=== PATIENT | male | born 1955 | race Asian ===

== ENCOUNTER → 2017-03-31 | Outpatient (CLI) | payer MEDICARE | END | disposition home or self-care (01) | LOC: MRI 09:04 | PROVIDERS: ATTEND Neurological Surgery | DX: M48.06 Spinal stenosis, lumbar region (principal); M12.88 Other specific arthropathies, not elsewhere classified, other specified site; R26.2 Difficulty in walking, not elsewhere classified | CPT/HCPCS: 72148 ==

== ENCOUNTER → 2017-04-29 | Outpatient (CLI) | payer MEDICARE | END | disposition home or self-care (01) | LOC: CT 09:15 | PROVIDERS: ATTEND Neurological Surgery | DX: M47.817 Spondylosis without myelopathy or radiculopathy, lumbosacral region (principal) | CPT/HCPCS: 72131 ==

== ENCOUNTER → 2017-06-03 | Outpatient (CLI) | payer MEDICARE | END | disposition home or self-care (01) | LOC: RAD 12:42 | PROVIDERS: ATTEND Neurological Surgery | DX: M47.816 Spondylosis without myelopathy or radiculopathy, lumbar region (principal) | CPT/HCPCS: 72114 ==

== ENCOUNTER → 2017-11-19 | Outpatient (CLI) | payer BC, MEDICARE ==
[2017-11-19 11:50] LABS: BASOPHILS % 0.5 % (0.0-2.0); EOSINOPHILS % 2.7 % (0.0-5.0); HEMATOCRIT. 43.9 % (42.0-52.0); HEMOGLOBIN. 14.8 g/dL (14.0-18.0); LYMPHOCYTES % 29.3 % (20.0-50.0); MEAN CORPUSCULAR HEMOGLOBIN 30.4 pg (28.0-32.0); MEAN CORPUSCULAR VOLUME 90.1 fL (80.0-94.0); MEAN PLATELET VOLUME 8.6 fl (7.4-10.4); MONOCYTES % 5.9 % (2.0-8.0); NEUTROPHILS % 61.6 % (40.0-76.0); PLATELET 225 x1000/uL (130-400); RED BLOOD CELL COUNT 4.88 mill/uL (4.7-6.1); RED CELL DISTRIBUTION WIDTH 13.7 % (11.6-14.6)
[2017-11-19 11:53] LABS: CLARITY URINE CLEAR (CLEAR); COLOR URINE YELLOW (YELLOW); KETONES URINE NEGATIVE (NEGATIVE); LEUKOCYTE ESTERASE URINE NEGATIVE (NEGATIVE); NITRITE URINE NEGATIVE (NEGATIVE); OCCULT BLOOD URINE NEGATIVE (NEGATIVE); PH URINE 7.5 (4.5-8.0); PROTEIN URINE NEGATIVE (NEGATIVE); SPECIFIC GRAVITY URINE 1.012 (1.005-1.030); UROBILINOGEN URINE 0.2 E.U./dL (0.2-1.0)
[2017-11-19 11:57] LABS: PARTIAL THROMBOPLASTIN TIME 24.7 sec (23.4-31.0); PROTHROMBIN TIME 10.7 sec (9.4-11.6)
[2017-11-19 12:02] LABS: CHLORIDE 104 mEq/L (98-107)
== END | disposition home or self-care (01) ==
LOC: RAD 11:18
PROVIDERS: ATTEND Neurological Surgery
DX: M46.04 Spinal enthesopathy, thoracic region (principal)
CPT/HCPCS: 36415; 71046; 80053; 81003; 85025; 85610; 85730; 86850; 86900; 93005

== ENCOUNTER 2017-11-24 06:21 | Inpatient (IN) | payer BC, MEDICARE ==
[~2017-11-24] VITALS: Ht 153.9 cm; Wt 74.8 kg
[2017-11-24] VITALS: BP 127/82
[~2017-11-24 06:21] MED LIST: AMLO2.5T45 PO; CARI350T PO; HYDR-3511 PO; LORA-250 PO; MIRT45TA PO; OMEP20CA10 PO; SIMV40TA5 PO
[2017-11-24] MEDS ORDERED: LIDOCAINE HCL/EPINEPHRINE 1%-EPI 1:100,000 50 ML VIAL INFIL ONE (09:07)
[2017-11-24] MEDS ORDERED: GELATIN SPONGE,ABSORBABLE SZ 100 ONE (09:07)
[2017-11-24] MEDS ORDERED: BACITRACIN ZINC 15GM TUBE TOP ONE (09:07)
[2017-11-24] MEDS ORDERED: THROMBIN (BOVINE) 5000 UNITS/VIAL TOP ONE (09:07)
[2017-11-24] MEDS ORDERED: NORMAL SALINE 0.9% 10 ML SYR ONE (09:08)
[2017-11-24] MEDS ORDERED: BACITRACIN 50,000 UNITS/VIAL ONE (09:08)
[2017-11-24] MEDS ORDERED: ROCURONIUM BROMIDE 10MG/ML VIAL 5ML IV ONE (09:49)
[2017-11-24] MEDS ORDERED: PROPOFOL 200MG/20ML VIAL IV ONE (09:49)
[2017-11-24] MEDS ORDERED: CEFAZOLIN SODIUM 1000MG/VIAL ONE (09:55)
[2017-11-24] MEDS ORDERED: DEXAMETHASONE 4MG/ML 1ML VIAL ONE (09:55)
[2017-11-24] MEDS ORDERED: LABETALOL HCL 5MG/ML VIAL 20ML IV ONE (10:00)
[2017-11-24] MEDS ORDERED: HYDROMORPHONE HCL/PF 2MG/ML (OR) ONE (10:32)
[2017-11-24] MEDS ORDERED: GLYCOPYRROLATE 0.2 MG/ML 2ML VIAL ONE (10:55)
[2017-11-24] MEDS ORDERED: NEOSTIGMINE METHYLSULFATE 1MG/ML 10 ML VIAL ONE (10:55)
[2017-11-24] MEDS ORDERED: LABETALOL HCL 5MG/ML VIAL 20ML IV PRN (11:00)
[2017-11-24] MEDS ORDERED: ONDANSETRON HCL 4MG/2ML VIAL IV PRN ×2 (11:00→11:15)
[2017-11-24] MEDS ORDERED: CLONIDINE 0.1MG TABLET PO PRN (11:15)
[2017-11-24] MEDS ORDERED: IPRATROPIUM/ALBUTEROL 0.5-3(2.5)MG/3ML NEB INH PRN (11:15)
[2017-11-24] MEDS ORDERED: DIPHENHYDRAMINE 50MG/ML VIAL IV PRN (11:15)
[2017-11-24] MEDS: MEPERIDINE HCL/PF 25MG/ML CPJ IV PRN ×2 (11:55→12:18)
[2017-11-24] MEDS ORDERED: DEXAMETHASONE 10 MG/ML VIAL IV ONE (12:00)
[2017-11-24] MEDS ORDERED: IPRATROPIUM/ALBUTEROL 0.5-3(2.5)MG/3ML NEB HHN ONE (12:00)
[2017-11-24] MEDS: DEXT 5%/LACTATED RINGERS 1,000 ML IV SCH ×2 (12:14→16:59)
[2017-11-24] MEDS: HYDROMORPHONE HCL/PF 2MG/ML CPJ IV PRN ×4 (12:30→13:33)
[2017-11-24 16:00] VITALS: BP 135/87
[2017-11-24] MEDS: MORPHINE SULFATE 4 MG/ML CPJ (NOT FOR IM USE) IV PRN (17:38)
[2017-11-24 17:39] VITALS: BP 135/87
[2017-11-24] MEDS ORDERED: CEFAZOLIN SODIUM 1000MG/VIAL IV SCH (18:00)
[2017-11-24] MEDS: CEFAZOLIN 1000MG PREMIX 50 ML IV SCH (18:59)
[2017-11-24 20:00] VITALS: BP 127/82
[2017-11-24] MEDS: CARISOPRODOL 350 MG TABLET PO SCH (22:40)
[2017-11-24] MEDS: LORAZEPAM 1MG TABLET PO PRN (22:40)
[2017-11-24] MEDS: HYDROCODONE/ACETAMINOPHEN 10/325MG TABLET PO PRN (22:41)
[2017-11-25] MEDS: MORPHINE SULFATE 4 MG/ML CPJ (NOT FOR IM USE) IV PRN ×5 (01:25→22:22)
[2017-11-25] MEDS: CEFAZOLIN 1000MG PREMIX 50 ML IV SCH ×2 (01:27→10:55)
[2017-11-25 04:00] VITALS: BP 135/80
[2017-11-25] MEDS: OMEPRAZOLE 20MG CAPSULE EXTENDED RELEASE PO SCH ×2 (06:06→22:15)
[2017-11-25] MEDS: CARISOPRODOL 350 MG TABLET PO SCH ×3 (06:06→22:15)
[2017-11-25] MEDS: LORAZEPAM 1MG TABLET PO PRN (06:07)
[2017-11-25 06:44] LABS: BASOPHILS % 0.2 % (0.0-2.0); HEMATOCRIT. 40.1 % (42.0-52.0); HEMOGLOBIN. 13.6 g/dL (14.0-18.0); LYMPHOCYTES % 7.9 % (20.0-50.0); MEAN CORPUSCULAR HEMOGLOBIN 30.2 pg (28.0-32.0); MEAN CORPUSCULAR VOLUME 89.1 fL (80.0-94.0); MEAN PLATELET VOLUME 9.7 fl (7.4-10.4); MONOCYTES % 4.3 % (2.0-8.0); NEUTROPHILS % 87.6 % (40.0-76.0); PLATELET 198 x1000/uL (130-400); RED BLOOD CELL COUNT 4.51 mill/uL (4.7-6.1); RED CELL DISTRIBUTION WIDTH 13.1 % (11.6-14.6)
[2017-11-25 08:00] VITALS: BP 116/82
[2017-11-25] MEDS: AMLODIPINE 5MG TABLET PO SCH (08:26)
[2017-11-25 08:32] LABS: CHLORIDE 103 mEq/L (98-107)
[2017-11-25 12:00] VITALS: BP 120/83
[2017-11-25 20:00] VITALS: BP 121/77
[2017-11-25] MEDS: HYDROCODONE/ACETAMINOPHEN 10/325MG TABLET PO PRN (20:18)
[2017-11-25] MEDS: ZOLPIDEM TARTRATE 5MG TABLET PO PRN (22:15)
[2017-11-26] VITALS: BP 138/88
[2017-11-26] MEDS: HYDROCODONE/ACETAMINOPHEN 10/325MG TABLET PO PRN ×2 (01:49→10:00)
[2017-11-26 04:00] VITALS: BP 124/77
[2017-11-26] MEDS ORDERED: SODIUM CHLORIDE 0.9% 1,000 ML IV ONE (07:00)
[2017-11-26] MEDS: OMEPRAZOLE 20MG CAPSULE EXTENDED RELEASE PO SCH ×2 (07:30→20:34)
[2017-11-26] MEDS: CARISOPRODOL 350 MG TABLET PO SCH ×3 (07:30→21:54)
[2017-11-26 08:00] VITALS: BP 104/64
[2017-11-26] MEDS: DOCUSATE SODIUM 100MG CAPSULE PO SCH ×2 (08:58→17:55)
[2017-11-26] MEDS: AMLODIPINE 5MG TABLET PO SCH (08:58)
[2017-11-26] MEDS: MORPHINE SULFATE 4 MG/ML CPJ (NOT FOR IM USE) IV PRN ×2 (08:58→18:41)
[2017-11-26 11:13] LABS: HEMOGLOBIN 14.8 g/dL (14.0-18.0); MEAN CORPUSCULAR HEMOGLOBIN 29.9 pg (28.0-32.0); MEAN CORPUSCULAR VOLUME 89.2 fL (80.0-94.0); PLATELET 203 x1000/uL (130-400); RED BLOOD CELL COUNT 4.93 mill/uL (4.7-6.1); RED CELL DISTRIBUTION WIDTH 13.6 % (11.6-14.6)
[2017-11-26 11:56] LABS: CHLORIDE 102 mEq/L (98-107)
[2017-11-26 12:00] VITALS: BP 106/63
[2017-11-26 12:51] LABS: CREATINE KINASE 602 IU/L (39-308); CREATINE KINASE MB FRACTION 2.2 ng/mL (0.5-3.6); TROPONIN I < 0.02 ng/mL (0.00-0.04)
[2017-11-26] MEDS: LORAZEPAM 1MG TABLET PO PRN (15:16)
[2017-11-26] MEDS ORDERED: ACETAMINOPHEN 325MG TABLET PO PRN (15:30)
[2017-11-26 16:00] VITALS: BP 115/78
[2017-11-26 16:05] LABS: CLARITY URINE CLEAR (CLEAR); COLOR URINE YELLOW (YELLOW); KETONES URINE TRACE (NEGATIVE); LEUKOCYTE ESTERASE URINE NEGATIVE (NEGATIVE); NITRITE URINE NEGATIVE (NEGATIVE); OCCULT BLOOD URINE NEGATIVE (NEGATIVE); PROTEIN URINE NEGATIVE (NEGATIVE); SPECIFIC GRAVITY URINE 1.012 (1.005-1.030); UROBILINOGEN URINE 0.2 E.U./dL (0.2-1.0)
[2017-11-26 20:00] VITALS: BP 120/71
[2017-11-26] MEDS: MIRTAZAPINE 30MG TABLET PO SCH (20:38)
[2017-11-27] VITALS: BP 127/80
[2017-11-27] MEDS: HYDROCODONE/ACETAMINOPHEN 10/325MG TABLET PO PRN ×3 (00:58→12:53)
[2017-11-27] MEDS: ZOLPIDEM TARTRATE 5MG TABLET PO PRN ×2 (01:07→21:40)
[2017-11-27] MEDS: CARISOPRODOL 350 MG TABLET PO SCH ×3 (06:12→21:33)
[2017-11-27] MEDS: OMEPRAZOLE 20MG CAPSULE EXTENDED RELEASE PO SCH (06:13)
[2017-11-27 08:00] VITALS: BP 109/78
[2017-11-27 08:06] LABS: BASOPHILS % 0.4 % (0.0-2.0); EOSINOPHILS % 1.8 % (0.0-5.0); HEMATOCRIT. 43.2 % (42.0-52.0); HEMOGLOBIN. 14.5 g/dL (14.0-18.0); LYMPHOCYTES % 26.1 % (20.0-50.0); MEAN CORPUSCULAR HEMOGLOBIN 30.2 pg (28.0-32.0); MEAN CORPUSCULAR VOLUME 89.8 fL (80.0-94.0); MEAN PLATELET VOLUME 9.4 fl (7.4-10.4); NEUTROPHILS % 63.7 % (40.0-76.0); PLATELET 188 x1000/uL (130-400); RED BLOOD CELL COUNT 4.81 mill/uL (4.7-6.1); RED CELL DISTRIBUTION WIDTH 13.7 % (11.6-14.6)
[2017-11-27] MEDS: DOCUSATE SODIUM 100MG CAPSULE PO SCH ×2 (08:47→16:29)
[2017-11-27] MEDS: LORAZEPAM 1MG TABLET PO PRN (08:48)
[2017-11-27 08:53] LABS: CHLORIDE 102 mEq/L (98-107)
[2017-11-27] MEDS: AMLODIPINE 5MG TABLET PO SCH (08:53)
[2017-11-27 12:00] VITALS: BP 101/65
[2017-11-27 16:00] VITALS: BP 122/85
[2017-11-27] MEDS: MORPHINE SULFATE 4 MG/ML CPJ (NOT FOR IM USE) IV PRN ×2 (16:35→21:33)
[2017-11-27 20:00] VITALS: BP 110/64
[2017-11-27] MEDS: MIRTAZAPINE 30MG TABLET PO SCH (21:33)
[2017-11-28] VITALS: BP 99/58
[2017-11-28 04:00] VITALS: BP 110/77
[2017-11-28] MEDS: LORAZEPAM 1MG TABLET PO PRN ×2 (05:34→15:33)
[2017-11-28] MEDS: HYDROCODONE/ACETAMINOPHEN 10/325MG TABLET PO PRN (05:36)
[2017-11-28] MEDS: CARISOPRODOL 350 MG TABLET PO SCH ×3 (06:09→21:30)
[2017-11-28 07:57] LABS: BASOPHILS % 0.4 % (0.0-2.0); EOSINOPHILS % 6.2 % (0.0-5.0); HEMATOCRIT. 39.7 % (42.0-52.0); HEMOGLOBIN. 13.8 g/dL (14.0-18.0); LYMPHOCYTES % 20.3 % (20.0-50.0); MEAN CORPUSCULAR HEMOGLOBIN 30.7 pg (28.0-32.0); MEAN CORPUSCULAR VOLUME 88.2 fL (80.0-94.0); MEAN PLATELET VOLUME 9.5 fl (7.4-10.4); MONOCYTES % 5.8 % (2.0-8.0); NEUTROPHILS % 67.3 % (40.0-76.0); PLATELET 188 x1000/uL (130-400); RED CELL DISTRIBUTION WIDTH 13.5 % (11.6-14.6)
[2017-11-28 08:00] VITALS: BP 112/73
[2017-11-28 08:15] LABS: CHLORIDE 103 mEq/L (98-107)
[2017-11-28] MEDS: DOCUSATE SODIUM 100MG CAPSULE PO SCH ×3 (09:06→17:54)
[2017-11-28] MEDS: AMLODIPINE 5MG TABLET PO SCH (09:06)
[2017-11-28] MEDS: PANTOPRAZOLE SODIUM 40 MG/VIAL IV SCH (09:07)
[2017-11-28 12:00] VITALS: BP 111/66
[2017-11-28] MEDS ORDERED: POTASSIUM CHLORIDE 20MEQ TABLET SR PO SCH (14:30)
[2017-11-28 16:00] VITALS: BP 120/80
[2017-11-28 20:00] VITALS: BP 115/70
[2017-11-28] MEDS: MORPHINE SULFATE 4 MG/ML CPJ (NOT FOR IM USE) IV PRN (21:30)
[2017-11-28] MEDS: MIRTAZAPINE 30MG TABLET PO SCH (21:30)
[2017-11-28] MEDS: ZOLPIDEM TARTRATE 5MG TABLET PO PRN (21:30)
[2017-11-29] VITALS: BP 133/72
[2017-11-29 04:00] VITALS: BP 118/71
[2017-11-29] MEDS: MORPHINE SULFATE 4 MG/ML CPJ (NOT FOR IM USE) IV PRN ×2 (04:51→10:20)
[2017-11-29] MEDS: CARISOPRODOL 350 MG TABLET PO SCH ×3 (06:02→21:32)
[2017-11-29 07:07] LABS: BASOPHILS % 0.4 % (0.0-2.0); EOSINOPHILS % 9.8 % (0.0-5.0); HEMATOCRIT. 39.4 % (42.0-52.0); HEMOGLOBIN. 13.5 g/dL (14.0-18.0); LYMPHOCYTES % 28.7 % (20.0-50.0); MEAN CORPUSCULAR HEMOGLOBIN 30.4 pg (28.0-32.0); MEAN CORPUSCULAR VOLUME 88.9 fL (80.0-94.0); MEAN PLATELET VOLUME 9.1 fl (7.4-10.4); MONOCYTES % 7.6 % (2.0-8.0); NEUTROPHILS % 53.5 % (40.0-76.0); PLATELET 218 x1000/uL (130-400); RED BLOOD CELL COUNT 4.43 mill/uL (4.7-6.1); RED CELL DISTRIBUTION WIDTH 13.6 % (11.6-14.6)
[2017-11-29 07:36] LABS: CHLORIDE 104 mEq/L (98-107)
[2017-11-29 08:00] VITALS: BP 112/87
[2017-11-29] MEDS: AMLODIPINE 5MG TABLET PO SCH (08:34)
[2017-11-29] MEDS: PANTOPRAZOLE SODIUM 40 MG/VIAL IV SCH (08:34)
[2017-11-29] MEDS: DOCUSATE SODIUM 100MG CAPSULE PO SCH (08:34)
[2017-11-29] MEDS: LORAZEPAM 1MG TABLET PO PRN (08:41)
[2017-11-29] MEDS ORDERED: DOCUSATE SODIUM 250MG CAPSULE PO ONE (10:15)
[2017-11-29] MEDS ORDERED: DOCUSATE SODIUM 100MG CAPSULE PO SCH (10:15)
[2017-11-29 12:00] VITALS: BP 115/70
[2017-11-29] MEDS ORDERED: HYDROMORPHONE HCL/PF 2MG/ML CPJ IV SCH (13:45)
[2017-11-29] MEDS ORDERED: HYDROMORPHONE HCL/PF 2MG/ML CPJ IV PRN (16:45)
[2017-11-29 20:00] VITALS: BP 112/72
[2017-11-29] MEDS ORDERED: HYDROCODONE/ACETAMINOPHEN 5/325MG TABLET PO PRN (20:45)
[2017-11-29] MEDS: ZOLPIDEM TARTRATE 5MG TABLET PO PRN (21:31)
[2017-11-29] MEDS: MIRTAZAPINE 30MG TABLET PO SCH (21:32)
[2017-11-30] VITALS: BP 120/70
[2017-11-30 04:00] VITALS: BP 110/73
[2017-11-30] MEDS: CARISOPRODOL 350 MG TABLET PO SCH ×3 (05:59→21:48)
[2017-11-30 08:00] VITALS: BP 114/75
[2017-11-30] MEDS ORDERED: MORPHINE SULFATE 4 MG/ML CPJ (NOT FOR IM USE) IV PRN (08:00)
[2017-11-30] MEDS ORDERED: POLYETHYLENE GLYCOL 3350 (17GM) 1 DOSE PACK PO SCH (08:00)
[2017-11-30 08:10] LABS: BASOPHILS % 0.4 % (0.0-2.0); EOSINOPHILS % 9.4 % (0.0-5.0); HEMATOCRIT. 39.9 % (42.0-52.0); HEMOGLOBIN. 13.5 g/dL (14.0-18.0); LYMPHOCYTES % 34.9 % (20.0-50.0); MEAN CORPUSCULAR HEMOGLOBIN 30.2 pg (28.0-32.0); MEAN PLATELET VOLUME 9.2 fl (7.4-10.4); MONOCYTES % 7.3 % (2.0-8.0); PLATELET 232 x1000/uL (130-400); RED BLOOD CELL COUNT 4.48 mill/uL (4.7-6.1); RED CELL DISTRIBUTION WIDTH 13.6 % (11.6-14.6)
[2017-11-30] MEDS: DOCUSATE SODIUM 250MG CAPSULE PO SCH (08:22)
[2017-11-30] MEDS: AMLODIPINE 5MG TABLET PO SCH (08:23)
[2017-11-30] MEDS: LORAZEPAM 0.5MG TABLET PO PRN (08:23)
[2017-11-30 08:28] LABS: CHLORIDE 103 mEq/L (98-107)
[2017-11-30 12:00] VITALS: BP 112/64
[2017-11-30 16:00] VITALS: BP 118/73
[2017-11-30 20:00] VITALS: BP 115/75
[2017-11-30] MEDS: ZOLPIDEM TARTRATE 5MG TABLET PO PRN (21:45)
[2017-11-30] MEDS: MIRTAZAPINE 30MG TABLET PO SCH (21:48)
[2017-12-01] VITALS: BP 127/73
[2017-12-01 04:00] VITALS: BP 100/69
[2017-12-01] MEDS: CARISOPRODOL 350 MG TABLET PO SCH (06:22)
[2017-12-01] MEDS: AMLODIPINE 5MG TABLET PO SCH (09:00)
[2017-12-01] MEDS: LORAZEPAM 0.5MG TABLET PO PRN (09:09)
[2017-12-01] MEDS: DOCUSATE SODIUM 250MG CAPSULE PO SCH (09:09)
[2017-12-01 09:37] VITALS: BP 104/69
[2017-12-01 09:53] VITALS: BP 104/69
== END 2017-12-01 10:13 | disposition home or self-care (01) | DRG 517 ==
LOC: OR 06:21 → 6EST 06:22
PROVIDERS: ADMIT Internal Medicine; ATTEND Internal Medicine
PROC: 0SP004Z Removal of Internal Fixation Device from Lumbar Vertebral Joint, Open Approach (ICD-10-PCS; principal; 2017-11-24 11:00)
DX: T84.226A Displacement of internal fixation device of vertebrae, initial encounter (principal); M48.02 Spinal stenosis, cervical region; D72.829 Elevated white blood cell count, unspecified; E87.6 Hypokalemia; I10 Essential (primary) hypertension; I45.10 Unspecified right bundle-branch block; Y83.8 Other surgical procedures as the cause of abnormal reaction of the patient, or of later complication, without mention of misadventure at the time of the procedure; M48.061 Spinal stenosis, lumbar region without neurogenic claudication; Z82.49 Family history of ischemic heart disease and other diseases of the circulatory system; Y92.89 Other specified places as the place of occurrence of the external cause
CPT/HCPCS: 36415; 72100; 80048; 81003; 82550; 82553; 83735; 84484; 85025; 85027; 85379; 87040; 88300; 93005; 93306; 94640; 97110; 97116; 97162; 97530; 97535; A4216; C1893; C9113; J0690; J1100; J1170; J2175; J2270; J2704; J2710; J3490; J7030; J7040; J7120; J7121; J7620

== ENCOUNTER → 2018-09-16 | Outpatient (CLI) | payer BC, MEDICARE | END | disposition home or self-care (01) | LOC: MRI 08:55 | PROVIDERS: ATTEND Neurological Surgery | DX: M50.322 Other cervical disc degeneration at C5-C6 level (principal); M48.02 Spinal stenosis, cervical region; M51.36 Other intervertebral disc degeneration, lumbar region; M47.892 Other spondylosis, cervical region | CPT/HCPCS: 72052; 72114; 72141 ==

== ENCOUNTER → 2019-07-14 | Outpatient (CLI) | payer BC | END | disposition home or self-care (01) | LOC: MRI 09:37 | PROVIDERS: ATTEND Neurological Surgery | DX: M48.02 Spinal stenosis, cervical region (principal); M25.78 Osteophyte, vertebrae | CPT/HCPCS: 72141 ==

== ENCOUNTER 2019-09-06 06:27 | Inpatient (IN) | payer BC, MEDICARE ==
[2019-09-06] VITALS (27 sets, daily range): BP systolic 79–164; BP diastolic 54–102
[~2019-09-06] VITALS: Ht 165.1 cm; Wt 84.8 kg
[~2019-09-06 06:27] MED LIST changes: -AMLO2.5T45 PO; +AMLO5TAB88 PO; +CARI250T PO; -CARI350T PO; -HYDR-3511 PO; +HYDR-4005 PO; -MIRT45TA PO; +MIRT45TA83 PO; -OMEP20CA10 PO; +OMEP40CA34 PO
[2019-09-06] MEDS ORDERED: NORMAL SALINE 0.9% 10 ML SYR ONE ×2 (07:22→11:14)
[2019-09-06] MEDS ORDERED: THROMBIN (BOVINE) 5000 UNITS/VIAL TOP ONE ×2 (07:22→11:14)
[2019-09-06] MEDS ORDERED: BACITRACIN 15GM TUBE TOP ONE (07:22)
[2019-09-06] MEDS ORDERED: BACITRACIN 50,000 UNITS/VIAL ONE ×2 (07:23→11:15)
[2019-09-06] MEDS ORDERED: SODIUM CHLORIDE 0.9% IRRIG SOL 2,000 ML IR ONE (07:23)
[2019-09-06] MEDS ORDERED: LIDOCAINE HCL/EPINEPHRINE 1%-EPI 1:100,000 20 ML VIAL ONE ×2 (07:23→11:15)
[2019-09-06] MEDS ORDERED: LACTATED RINGERS 1,000 ML IV SCH (07:30)
[2019-09-06] MEDS ORDERED: ROCURONIUM BROMIDE 10MG/ML VIAL 5ML IV ONE ×2 (11:30→12:56)
[2019-09-06] MEDS ORDERED: PROPOFOL 200MG/20ML VIAL IV ONE ×2 (11:30→12:12)
[2019-09-06] MEDS ORDERED: MIDAZOLAM HCL 2 MG/2 ML VIAL ONE ×3 (11:30→14:42)
[2019-09-06] MEDS ORDERED: FENTANYL CITRATE/PF 50MCG/ML 2ML VIAL ONE ×2 (11:30→12:09)
[2019-09-06] MEDS ORDERED: LIDOCAINE HCL/PF 1% 10 MG/ML 5ML VIAL ONE (11:30)
[2019-09-06] MEDS ORDERED: CEFAZOLIN SODIUM 1000MG/VIAL ONE (11:34)
[2019-09-06] MEDS ORDERED: SODIUM CHLORIDE 0.9% 10ML VIAL ONE ×3 (11:35→12:10)
[2019-09-06] MEDS ORDERED: PHENYLEPHRINE HCL 10 MG/ML 1ML (IV VIAL) IV ONE ×2 (11:37→14:36)
[2019-09-06] MEDS ORDERED: EPHEDRINE SULFATE 50MG/ML VIAL ONE ×2 (11:40→12:10)
[2019-09-06] MEDS ORDERED: GLYCOPYRROLATE 0.2 MG/ML 2ML VIAL ONE ×3 (13:31→14:36)
[2019-09-06] MEDS ORDERED: CEFAZOLIN SODIUM 1000MG/VIAL IV SCH (14:00)
[2019-09-06] MEDS ORDERED: NEOSTIGMINE METHYLSULFATE 1MG/ML 10 ML VIAL ONE (14:36)
[2019-09-06] MEDS ORDERED: ALBUTEROL 90MCG/PUFF 17GM INHALER INH ONE (14:42)
[2019-09-06] MEDS ORDERED: HYDROMORPHONE HCL/PF 2MG/ML CPJ ONE (14:42)
[2019-09-06] MEDS: HYDROMORPHONE HCL/PF 2MG/ML CPJ IV PRN ×3 (14:43→14:52)
[2019-09-06] MEDS ORDERED: ALBUTEROL (0.083%) 2.5MG/3ML NEB ONE ×2 (14:43→14:44)
[2019-09-06] MEDS ORDERED: LORAZEPAM 2MG/ML CPJ ONE (14:55)
[2019-09-06] MEDS ORDERED: RACEPINEPHRINE 2.25% 0.5ML NEB VIAL HHN PRN (15:00)
[2019-09-06] MEDS ORDERED: ONDANSETRON HCL 4MG/2ML INJ IV PRN (15:00)
[2019-09-06] MEDS ORDERED: MEPERIDINE HCL/PF 25MG/ML CPJ IV PRN (15:00)
[2019-09-06] MEDS ORDERED: ONDANSETRON INJ IV PRN (15:15)
[2019-09-06] MEDS ORDERED: MORPHINE PCA 50MG/50ML IV PRN (15:15)
[2019-09-06] MEDS ORDERED: DIPHENHYDRAMINE INJ IV PRN (15:15)
[2019-09-06] MEDS ORDERED: LORAZEPAM 2MG/ML CPJ IV NR (15:15)
[2019-09-06] MEDS ORDERED: NALOXONE INJ IV PRN (15:15)
[2019-09-06] MEDS ORDERED: LABETALOL 5MG/ML SYR 20 MG/4 ML SYRINGE IV NR (15:30)
[2019-09-06] MEDS ORDERED: IPRATROPIUM/ALBUTEROL 0.5-3(2.5)MG/3ML NEB HHN PRN (15:30)
[2019-09-06 16:25] LABS: BG BASE EXCESS -1.9 mmol/L (-2.0-2.0); BG CARBOXYHEMOGLOBIN 0.4 % (0.5-1.5); BG DEOXYHEMOGLOBIN 1.6 % (0.0-5.0); BG FRACTION INSPIRED OXYGEN 32; BG HCO3 ACT 22.5 mmol/L (22.0-26.0); BG METHEMOGLOBIN 0.3 % (0.0-1.5); BG OXYGEN SATURATION 98.4 % (92.0-98.5); BG OXYHEMOGLOBIN 97.7 % (94.0-97.0); BG PCO2 37.4 mmHg (35.0-45.0); BG PH 7.397 (7.350-7.450); BG PO2 130.7 mmHg (75.0-100.0); BG SAMPLE SITE A-LINE; BG TOTAL HEMOGLOBIN 15.1 g/dL (12.0-18.0); BG VENT MODE NASAL CANNULA
[2019-09-06] MEDS: DEXAMETHASONE 4MG/ML 1ML VIAL IV SCH ×2 (16:31→23:24)
[2019-09-06] MEDS ORDERED: HYDRALAZINE 20MG/ML VIAL IV STA (17:30)
[2019-09-06] MEDS ORDERED: NICARDIPINE 100 MG in SODIUM CHLORIDE 0.9% 60 ML IV PRN (17:30)
[2019-09-06] MEDS ORDERED: NITROPRUSSIDE 50 MG in DEXT 5% WATER 248 ML IV PRN (17:45)
[2019-09-06] MEDS ORDERED: HYDRALAZINE 20MG/ML VIAL IV NR (18:00)
[2019-09-06] MEDS: MORPHINE SULFATE 4 MG/ML CPJ (NOT FOR IM USE) IV PRN (18:12)
[2019-09-06 18:31] LABS: HEMATOCRIT. 42.1 % (42.0-52.0); HEMOGLOBIN. 14.2 g/dL (14.0-18.0); MEAN CORPUSCULAR HEMOGLOBIN 30.9 pg (28.0-32.0); MEAN CORPUSCULAR VOLUME 91.4 fL (80.0-94.0); MEAN PLATELET VOLUME 9.1 fl (7.4-10.4); PLATELET 219 x1000/uL (130-400); RED CELL DISTRIBUTION WIDTH 13.2 % (11.6-14.6)
[2019-09-06 18:37] LABS: CHLORIDE 107 mEq/L (98-107)
[2019-09-06 19:56] LABS: PLATELET ESTIMATE NORMAL
[2019-09-06] MEDS: CEFAZOLIN 1000MG PREMIX 50 ML IV SCH (20:56)
[2019-09-06] MEDS: LORAZEPAM 1MG TABLET PO PRN (20:57)
[2019-09-06] MEDS: DEXT 5%/LACTATED RINGERS 1,000 ML IV SCH (20:57)
[2019-09-06] MEDS: IPRATROPIUM/ALBUTEROL 0.5-3(2.5)MG/3ML NEB HHN SCH (21:38)
[2019-09-06] MEDS: HYDROCODONE/APAP 7.5/325MG 1 TAB TABLET PO PRN (22:42)
[2019-09-07] VITALS (53 sets, daily range): BP systolic 77–163; BP diastolic 46–115
[2019-09-07] MEDS: MORPHINE SULFATE 4 MG/ML CPJ (NOT FOR IM USE) IV PRN ×2 (01:09→05:31)
[2019-09-07] MEDS: IPRATROPIUM/ALBUTEROL 0.5-3(2.5)MG/3ML NEB HHN SCH ×5 (03:53→21:52)
[2019-09-07] MEDS: DEXT 5%/LACTATED RINGERS 1,000 ML IV SCH ×3 (04:14→18:56)
[2019-09-07] MEDS: CEFAZOLIN 1000MG PREMIX 50 ML IV SCH ×3 (04:15→21:41)
[2019-09-07] MEDS: DEXAMETHASONE 4MG/ML 1ML VIAL IV SCH ×2 (05:29→12:54)
[2019-09-07] MEDS: HYDROMORPHONE HCL/PF 2MG/ML CPJ IV PRN ×4 (09:29→23:12)
[2019-09-07] MEDS: LORAZEPAM 1MG TABLET PO PRN ×2 (10:06→18:55)
[2019-09-07] MEDS ORDERED: PNEUMOCOCCAL 23-VAL P-SAC VAC 0.5 ML IM ONE (12:00)
[2019-09-07] MEDS ORDERED: BISACODYL 5MG TABLET PO PRN (13:15)
[2019-09-07] MEDS ORDERED: POTASSIUM CHLORIDE 20MEQ/PACKET PO SCH (13:15)
[2019-09-07] MEDS ORDERED: CLONIDINE 0.1MG TABLET PO PRN (15:00)
[2019-09-07] MEDS: HYDROCODONE/APAP 7.5/325MG 1 TAB TABLET PO PRN (16:36)
[2019-09-07] MEDS: DOCUSATE SODIUM 100MG CAPSULE PO SCH (17:17)
[2019-09-07] MEDS: MIRTAZAPINE 15MG TABLET PO SCH (21:41)
[2019-09-07] MEDS: ATORVASTATIN CALCIUM 40MG TABLET PO SCH (21:41)
[2019-09-08] MEDS: IPRATROPIUM/ALBUTEROL 0.5-3(2.5)MG/3ML NEB HHN SCH ×4 (02:33→21:51)
[2019-09-08] MEDS: HYDROMORPHONE HCL/PF 2MG/ML CPJ IV PRN ×5 (03:32→20:53)
[2019-09-08 04:00] VITALS: BP 122/73
[2019-09-08] MEDS: CEFAZOLIN 1000MG PREMIX 50 ML IV SCH ×3 (05:09→20:46)
[2019-09-08 08:29] VITALS: BP 141/91
[2019-09-08] MEDS: AMLODIPINE 5MG TABLET PO SCH (09:02)
[2019-09-08] MEDS: OMEPRAZOLE 20MG CAPSULE EXTENDED RELEASE PO SCH (09:02)
[2019-09-08] MEDS: DOCUSATE SODIUM 100MG CAPSULE PO SCH ×2 (09:02→16:52)
[2019-09-08] MEDS: LORAZEPAM 1MG TABLET PO PRN ×2 (09:08→16:53)
[2019-09-08 11:54] VITALS: BP 132/73
[2019-09-08 11:55] LABS: BASOPHILS % 0.1 % (0.0-2.0); EOSINOPHILS % 0.1 % (0.0-5.0); HEMATOCRIT. 39.7 % (42.0-52.0); HEMOGLOBIN. 13.4 g/dL (14.0-18.0); LYMPHOCYTES % 16.3 % (20.0-50.0); MEAN CORPUSCULAR HEMOGLOBIN 31.3 pg (28.0-32.0); MEAN CORPUSCULAR VOLUME 92.8 fL (80.0-94.0); MEAN PLATELET VOLUME 9.2 fl (7.4-10.4); NEUTROPHILS % 76.5 % (40.0-76.0); PLATELET 192 x1000/uL (130-400); RED BLOOD CELL COUNT 4.28 mill/uL (4.7-6.1); RED CELL DISTRIBUTION WIDTH 13.3 % (11.6-14.6)
[2019-09-08 12:10] LABS: CHLORIDE 106 mEq/L (98-107)
[2019-09-08] MEDS ORDERED: POTASSIUM CHLORIDE 20MEQ TABLET SR PO NR (14:15)
[2019-09-08 16:13] VITALS: BP 112/72
[2019-09-08 20:00] VITALS: BP 149/90
[2019-09-08] MEDS: MIRTAZAPINE 15MG TABLET PO SCH (20:46)
[2019-09-08] MEDS: ATORVASTATIN CALCIUM 40MG TABLET PO SCH (20:46)
[2019-09-08 23:31] VITALS: BP 134/84
[2019-09-08] MEDS: HYDROCODONE/APAP 7.5/325MG 1 TAB TABLET PO PRN (23:32)
[2019-09-09] VITALS: BP 142/72
[2019-09-09] MEDS: HYDROMORPHONE HCL/PF 2MG/ML CPJ IV PRN ×5 (01:06→20:32)
[2019-09-09] MEDS: IPRATROPIUM/ALBUTEROL 0.5-3(2.5)MG/3ML NEB HHN SCH ×4 (02:52→21:01)
[2019-09-09 04:00] VITALS: BP 138/85
[2019-09-09] MEDS: OMEPRAZOLE 20MG CAPSULE EXTENDED RELEASE PO SCH (05:54)
[2019-09-09] MEDS: CEFAZOLIN 1000MG PREMIX 50 ML IV SCH ×3 (06:02→20:35)
[2019-09-09 08:00] VITALS: BP 139/90
[2019-09-09] MEDS: DOCUSATE SODIUM 100MG CAPSULE PO SCH ×2 (10:03→18:42)
[2019-09-09] MEDS: AMLODIPINE 5MG TABLET PO SCH (10:04)
[2019-09-09 12:00] VITALS: BP 121/86
[2019-09-09] MEDS: HYDROCODONE/APAP 7.5/325MG 1 TAB TABLET PO PRN ×2 (12:36→18:43)
[2019-09-09 16:00] VITALS: BP 131/86
[2019-09-09 16:35] LABS: BASOPHILS % 0.4 % (0.0-2.0); HEMATOCRIT. 43.9 % (42.0-52.0); HEMOGLOBIN. 14.8 g/dL (14.0-18.0); LYMPHOCYTES % 29.6 % (20.0-50.0); MEAN CORPUSCULAR HEMOGLOBIN 30.8 pg (28.0-32.0); MEAN CORPUSCULAR VOLUME 91.7 fL (80.0-94.0); MEAN PLATELET VOLUME 8.7 fl (7.4-10.4); MONOCYTES % 8.8 % (2.0-8.0); NEUTROPHILS % 60.2 % (40.0-76.0); PLATELET 205 x1000/uL (130-400); RED BLOOD CELL COUNT 4.79 mill/uL (4.7-6.1); RED CELL DISTRIBUTION WIDTH 13.4 % (11.6-14.6)
[2019-09-09 20:00] VITALS: BP 106/85
[2019-09-09] MEDS: MIRTAZAPINE 15MG TABLET PO SCH (20:32)
[2019-09-09] MEDS: ATORVASTATIN CALCIUM 40MG TABLET PO SCH (20:32)
[2019-09-09] MEDS: LORAZEPAM 1MG TABLET PO PRN (22:25)
[2019-09-10] VITALS: BP 160/98
[2019-09-10] MEDS: HYDROMORPHONE HCL/PF 2MG/ML CPJ IV PRN ×5 (00:41→20:32)
[2019-09-10 04:00] VITALS: BP 131/87
[2019-09-10] MEDS: CEFAZOLIN 1000MG PREMIX 50 ML IV SCH ×2 (06:26→12:33)
[2019-09-10] MEDS: OMEPRAZOLE 20MG CAPSULE EXTENDED RELEASE PO SCH (06:27)
[2019-09-10 07:17] LABS: BASOPHILS % 0.3 % (0.0-2.0); EOSINOPHILS % 2.7 % (0.0-5.0); HEMATOCRIT. 43.7 % (42.0-52.0); HEMOGLOBIN. 14.4 g/dL (14.0-18.0); MEAN CORPUSCULAR HEMOGLOBIN 30.5 pg (28.0-32.0); MEAN CORPUSCULAR VOLUME 92.7 fL (80.0-94.0); MEAN PLATELET VOLUME 9.2 fl (7.4-10.4); MONOCYTES % 8.6 % (2.0-8.0); NEUTROPHILS % 65.4 % (40.0-76.0); PLATELET 193 x1000/uL (130-400); RED BLOOD CELL COUNT 4.71 mill/uL (4.7-6.1)
[2019-09-10 07:33] VITALS: BP 114/73
[2019-09-10 08:03] LABS: CHLORIDE 103 mEq/L (98-107)
[2019-09-10] MEDS: IPRATROPIUM/ALBUTEROL 0.5-3(2.5)MG/3ML NEB HHN SCH ×3 (08:20→21:37)
[2019-09-10] MEDS: AMLODIPINE 5MG TABLET PO SCH (09:10)
[2019-09-10] MEDS: DOCUSATE SODIUM 100MG CAPSULE PO SCH ×2 (09:11→17:10)
[2019-09-10 12:00] VITALS: BP 135/92
[2019-09-10] MEDS: LORAZEPAM 1MG TABLET PO PRN ×2 (14:44→22:47)
[2019-09-10 15:48] VITALS: BP 120/78
[2019-09-10] MEDS: HYDROCODONE/APAP 7.5/325MG 1 TAB TABLET PO PRN (17:10)
[2019-09-10 20:00] VITALS: BP 145/84
[2019-09-10] MEDS: ATORVASTATIN CALCIUM 40MG TABLET PO SCH (20:56)
[2019-09-10] MEDS: MIRTAZAPINE 15MG TABLET PO SCH (20:56)
[2019-09-11] VITALS: BP 107/78
[2019-09-11] MEDS: HYDROMORPHONE HCL/PF 2MG/ML CPJ IV PRN ×4 (02:54→20:23)
[2019-09-11] MEDS: IPRATROPIUM/ALBUTEROL 0.5-3(2.5)MG/3ML NEB HHN SCH ×4 (03:17→20:45)
[2019-09-11 04:00] VITALS: BP 126/68
[2019-09-11] MEDS: OMEPRAZOLE 20MG CAPSULE EXTENDED RELEASE PO SCH (06:36)
[2019-09-11 08:00] VITALS: BP 115/76
[2019-09-11 08:37] LABS: BASOPHILS % 0.2 % (0.0-2.0); EOSINOPHILS % 1.7 % (0.0-5.0); HEMATOCRIT. 43.4 % (42.0-52.0); HEMOGLOBIN. 14.7 g/dL (14.0-18.0); LYMPHOCYTES % 14.2 % (20.0-50.0); MEAN CORPUSCULAR HEMOGLOBIN 30.8 pg (28.0-32.0); MEAN CORPUSCULAR VOLUME 91.3 fL (80.0-94.0); MEAN PLATELET VOLUME 9.6 fl (7.4-10.4); NEUTROPHILS % 76.9 % (40.0-76.0); PLATELET 220 x1000/uL (130-400); RED BLOOD CELL COUNT 4.75 mill/uL (4.7-6.1); RED CELL DISTRIBUTION WIDTH 12.8 % (11.6-14.6)
[2019-09-11] MEDS: AMLODIPINE 5MG TABLET PO SCH (09:19)
[2019-09-11] MEDS: DOCUSATE SODIUM 100MG CAPSULE PO SCH ×2 (09:20→16:29)
[2019-09-11 12:00] VITALS: BP 120/60
[2019-09-11] MEDS: HYDROCODONE/APAP 7.5/325MG 1 TAB TABLET PO PRN (12:15)
[2019-09-11 16:00] VITALS: BP 104/71
[2019-09-11] MEDS: LORAZEPAM 1MG TABLET PO PRN (16:32)
[2019-09-11 20:00] VITALS: BP 119/77
[2019-09-11] MEDS: MIRTAZAPINE 15MG TABLET PO SCH (20:22)
[2019-09-11] MEDS: ATORVASTATIN CALCIUM 40MG TABLET PO SCH (20:22)
[2019-09-12] VITALS: BP 111/68
[2019-09-12] MEDS: HYDROMORPHONE HCL/PF 2MG/ML CPJ IV PRN ×2 (00:45→06:52)
[2019-09-12] MEDS: IPRATROPIUM/ALBUTEROL 0.5-3(2.5)MG/3ML NEB HHN SCH ×3 (01:03→13:15)
[2019-09-12 04:00] VITALS: BP 111/75
[2019-09-12 08:00] VITALS: BP 120/81
[2019-09-12] MEDS: DOCUSATE SODIUM 100MG CAPSULE PO SCH ×2 (08:22→17:00)
[2019-09-12] MEDS: AMLODIPINE 5MG TABLET PO SCH (08:23)
[2019-09-12] MEDS ORDERED: FAMOTIDINE 20MG TABLET PO SCH (09:00)
[2019-09-12] MEDS ORDERED: LORAZEPAM 1MG TABLET PO PRN (09:15)
[2019-09-12] MEDS ORDERED: HYDROMORPHONE HCL/PF 2MG/ML CPJ IV PRN (11:30)
[2019-09-12 12:00] VITALS: BP 121/78
[2019-09-12 14:04] VITALS: BP 121/78
[2019-09-12 16:00] VITALS: BP 129/71
== END 2019-09-12 17:39 | DRG 471 ==
LOC: OR 06:27 → MICUSO 06:28 → 8WST 09-07 17:48
PROVIDERS: ADMIT Neurological Surgery; ATTEND Neurological Surgery
PROC: 0RG1071 Fusion of Cervical Vertebral Joint with Autologous Tissue Substitute, Posterior Approach, Posterior Column, Open Approach (ICD-10-PCS; principal; 2019-09-06)
PROC: 00NW0ZZ Release Cervical Spinal Cord, Open Approach (ICD-10-PCS; 2019-09-06)
PROC: 4A11X4G Monitoring of Peripheral Nervous Electrical Activity, Intraoperative, External Approach (ICD-10-PCS; 2019-09-06)
PROC: 0RT30ZZ Resection of Cervical Vertebral Disc, Open Approach (ICD-10-PCS; 2019-09-06)
DX: M48.02 Spinal stenosis, cervical region (principal); G82.50 Quadriplegia, unspecified; M47.12 Other spondylosis with myelopathy, cervical region; M47.22 Other spondylosis with radiculopathy, cervical region; E78.5 Hyperlipidemia, unspecified; F32.9 Major depressive disorder, single episode, unspecified; F41.9 Anxiety disorder, unspecified; I10 Essential (primary) hypertension; R26.89 Other abnormalities of gait and mobility; R73.9 Hyperglycemia, unspecified; Z87.01 Personal history of pneumonia (recurrent); Z87.891 Personal history of nicotine dependence; Z91.040 Latex allergy status; Z79.899 Other long term (current) drug therapy
CPT/HCPCS: 36415; 36600; 71045; 72040; 72141; 76000; 80048; 82375; 82805; 83036; 84132; 84145; 86850; 86900; 88304; 88311; 90732; 94640; 95829; 95925; 95926; 95928; 95929; 97110; 97116; 97162; 97166; 97530; C1713; C1893; J0360; J0690; J1100; J1170; J2060; J2250; J2270; J2370; J2704; J2710; J3010; J3490; J7121; J7611; J7620; L0172

== ENCOUNTER → 2019-11-09 | Outpatient (CLI) | payer BC, MEDICARE ==
[~2019-11-09] MED LIST changes: +OMEP40CA12 PO; -OMEP40CA34 PO; +SIMV-46 PO; -SIMV40TA5 PO
== END | disposition home or self-care (01) ==
LOC: RAD 10:23
PROVIDERS: ATTEND Neurological Surgery
DX: M43.22 Fusion of spine, cervical region (principal); M47.892 Other spondylosis, cervical region
CPT/HCPCS: 72052

== ENCOUNTER → 2020-05-31 | Outpatient (CLI) | payer BC, MEDICARE ==
[2020-05-31 09:11] LABS: BASOPHILS % 0.8 % (0.0-2.0); HEMATOCRIT. 42.1 % (42.0-52.0); HEMOGLOBIN. 14.6 g/dL (14.0-18.0); LYMPHOCYTES % 33.6 % (20.0-50.0); MEAN CORPUSCULAR HEMOGLOBIN 30.8 pg (28.0-32.0); MEAN CORPUSCULAR VOLUME 88.7 fL (80.0-94.0); MEAN PLATELET VOLUME 9.4 fl (7.4-10.4); MONOCYTES % 5.6 % (2.0-8.0); PLATELET 170 x1000/uL (130-400); RED BLOOD CELL COUNT 4.75 mill/uL (4.7-6.1)
[2020-05-31 09:48] LABS: CHLORIDE 108 mEq/L (98-107)
[2020-05-31 09:55] LABS: LDL CHOLESTEROL 83 mg/dL (5-100)
[2020-05-31 09:56] LABS: HDL CHOLESTEROL 41 mg/dL (40-59)
[2020-05-31 10:01] LABS: TOTAL IRON BINDING CAPACITY 352 ug/dL (250-450)
[2020-05-31 10:04] LABS: T4 FREE 0.97 ng/dL (0.76-1.46)
[2020-05-31 14:07] LABS: PLATELET ESTIMATE NORMAL
[2020-06-01 09:11] LABS: RF PROFILE < 10.0 IU/mL (0.0-13.9); VITAMIN D 25-OH 29.3 ng/mL (30.0-100.0)
[2020-06-01 17:07] LABS: ANTI-NUCLEAR ANTIBODIES DIRECT Negative (Negative)
[2020-06-02 19:07] LABS: CCP IgG/IgA PROFILE 4 units (0-19)
== END | disposition home or self-care (01) ==
LOC: LAB 08:31
PROVIDERS: ATTEND Internal Medicine Endocrinology, Diabetes & Metabolism
DX: M54.9 Dorsalgia, unspecified (principal); I10 Essential (primary) hypertension; N40.0 Benign prostatic hyperplasia without lower urinary tract symptoms; R73.9 Hyperglycemia, unspecified; R60.0 Localized edema
CPT/HCPCS: 36415; 80053; 80061; 80076; 82306; 83036; 83540; 83550; 83735; 83880; 84153; 84439; 84443; 85025; 85651; 86038; 86200; 86431; G0103

== ENCOUNTER → 2020-05-31 | Outpatient (CLI) | payer BC, MEDICARE | END | disposition home or self-care (01) | LOC: MRI 08:23 | PROVIDERS: ATTEND Neurological Surgery | DX: M51.36 Other intervertebral disc degeneration, lumbar region (principal); M48.061 Spinal stenosis, lumbar region without neurogenic claudication; M47.816 Spondylosis without myelopathy or radiculopathy, lumbar region; J98.11 Atelectasis; R07.9 Chest pain, unspecified | CPT/HCPCS: 71046; 72148 ==

== ENCOUNTER → 2020-06-05 | Outpatient (CLI) | payer BC | END | disposition home or self-care (01) | LOC: LAB 08:15 | PROVIDERS: ATTEND Internal Medicine Endocrinology, Diabetes & Metabolism | DX: Z20.828 Contact with and (suspected) exposure to other viral communicable diseases (principal) | CPT/HCPCS: 87635 ==

== ENCOUNTER → 2020-06-07 | Outpatient (CLI) | payer BC | END | disposition home or self-care (01) | LOC: US 08:00 | PROVIDERS: ATTEND Internal Medicine Endocrinology, Diabetes & Metabolism | DX: R60.0 Localized edema (principal) | CPT/HCPCS: 93970 ==

== ENCOUNTER 2020-06-11 14:26 | Inpatient (IN) | payer BC ==
[~2020-06-11] VITALS: Ht 167.6 cm; Wt 82.6 kg
[2020-06-11] MEDS ORDERED: SODIUM CHLORIDE 0.9% 1,000 ML IV ONE (15:12)
[2020-06-11] MEDS ORDERED: MORPHINE SULFATE 4 MG/ML CPJ (NOT FOR IM USE) IV STA (16:16)
[2020-06-11] MEDS ORDERED: ONDANSETRON HCL 4MG/2ML INJ IV STA (16:16)
[2020-06-11 16:17] LABS: BASOPHILS % 0.4 % (0.0-2.0); CHLORIDE 106 mEq/L (98-107); EOSINOPHILS % 1.2 % (0.0-5.0); HEMATOCRIT. 44.2 % (42.0-52.0); HEMOGLOBIN. 15.2 g/dL (14.0-18.0); LYMPHOCYTES % 22.8 % (20.0-50.0); MEAN CORPUSCULAR HEMOGLOBIN 30.3 pg (28.0-32.0); MEAN CORPUSCULAR VOLUME 88.5 fL (80.0-94.0); MEAN PLATELET VOLUME 8.8 fl (7.4-10.4); MONOCYTES % 6.2 % (2.0-8.0); NEUTROPHILS % 69.4 % (40.0-76.0); PLATELET 228 x1000/uL (130-400); RED BLOOD CELL COUNT 4.99 mill/uL (4.7-6.1); RED CELL DISTRIBUTION WIDTH 13.8 % (11.6-14.6)
[2020-06-11 16:21] LABS: PARTIAL THROMBOPLASTIN TIME 27.6 sec (23.4-31.0); PROTHROMBIN TIME 10.6 sec (9.6-11.0)
[2020-06-11] MEDS ORDERED: ASPIRIN 81MG TABLET PO ONE (16:30)
[2020-06-11 18:44] LABS: CLARITY URINE CLEAR (CLEAR); COLOR URINE YELLOW (YELLOW); KETONES URINE NEGATIVE (NEGATIVE); LEUKOCYTE ESTERASE URINE NEGATIVE (NEGATIVE); NITRITE URINE NEGATIVE (NEGATIVE); OCCULT BLOOD URINE NEGATIVE (NEGATIVE); PROTEIN URINE NEGATIVE (NEGATIVE); SPECIFIC GRAVITY URINE 1.011 (1.005-1.030); UROBILINOGEN URINE 0.2 E.U./dL (0.2-1.0)
[2020-06-11] MEDS ORDERED: AMLODIPINE 5MG TABLET PO SCH (19:30)
[2020-06-11] MEDS: MORPHINE SULFATE 2 MG/ML CPJ (NOT FOR IM USE) IV PRN ×2 (19:53→23:50)
[2020-06-11] MEDS ORDERED: MIRTAZAPINE 30MG TABLET PO SCH (21:00)
[2020-06-11 22:30] VITALS: BP 147/76
[2020-06-11 22:58] VITALS: BP 147/76
[2020-06-11] MEDS: MIRTAZAPINE 15MG TABLET PO SCH (23:48)
[2020-06-11] MEDS: OMEPRAZOLE 20MG CAPSULE EXTENDED RELEASE PO SCH (23:49)
[2020-06-12] MEDS: HYDROCODONE/ACETAMINOPHEN 10/325MG TABLET PO PRN ×2 (03:45→18:20)
[2020-06-12 04:00] VITALS: BP 138/78
[2020-06-12] MEDS: OMEPRAZOLE 20MG CAPSULE EXTENDED RELEASE PO SCH ×2 (06:36→21:58)
[2020-06-12 07:32] LABS: CHLORIDE 108 mEq/L (98-107)
[2020-06-12 08:00] VITALS: BP 116/80
[2020-06-12] MEDS ORDERED: BISACODYL 10MG SUPP PR PRN (08:15)
[2020-06-12] MEDS ORDERED: POTASSIUM CHLORIDE 20MEQ TABLET SR PO SCH (08:15)
[2020-06-12] MEDS: MORPHINE SULFATE 2 MG/ML CPJ (NOT FOR IM USE) IV PRN ×2 (10:11→21:48)
[2020-06-12] MEDS: DOCUSATE SODIUM 100MG CAPSULE PO SCH ×2 (10:15→18:18)
[2020-06-12 12:00] VITALS: BP 118/87
[2020-06-12] MEDS ORDERED: LORAZEPAM 1MG TABLET PO PRN (14:00)
[2020-06-12 16:00] VITALS: BP 109/68
[2020-06-12 20:00] VITALS: BP 130/79
[2020-06-12] MEDS ORDERED: ATORVASTATIN CALCIUM 20MG TABLET PO SCH (21:00)
[2020-06-12] MEDS: MIRTAZAPINE 15MG TABLET PO SCH (23:43)
[2020-06-13] VITALS: BP 130/79
[2020-06-13 04:00] VITALS: BP 131/71
[2020-06-13] MEDS: OMEPRAZOLE 20MG CAPSULE EXTENDED RELEASE PO SCH (06:21)
[2020-06-13 07:06] LABS: CHLORIDE 105 mEq/L (98-107)
[2020-06-13 08:00] VITALS: BP 131/80
[2020-06-13] MEDS ORDERED: AMLODIPINE 5MG TABLET PO SCH (09:00)
[2020-06-13] MEDS ORDERED: TAMSULOSIN HCL 0.4MG SR CAPSULE PO SCH (09:00)
[2020-06-13] MEDS ORDERED: BISACODYL 10MG SUPP PR PRN (09:15)
[2020-06-13] MEDS: DOCUSATE SODIUM 100MG CAPSULE PO SCH ×2 (09:31→17:00)
[2020-06-13] MEDS ORDERED: POTASSIUM CHLORIDE 20MEQ TABLET SR PO NR (10:15)
[2020-06-13 12:00] VITALS: BP 124/71
[2020-06-13 16:00] VITALS: BP 134/84
[2020-06-13 16:46] VITALS: BP 134/84
[2020-06-13] MEDS ORDERED: DOCUSATE SODIUM 100MG CAPSULE PO SCH (17:00)
[2020-06-13] MEDS ORDERED: POLYETHYLENE GLYCOL 3350 (17GM) 1 DOSE PACK PO SCH (21:00)
[2020-06-14] MEDS ORDERED: FAMOTIDINE 20MG TABLET PO SCH (09:00)
[2020-06-14 13:07] LABS: ALBUMIN 3.4 g/dL (2.9-4.4); ALPHA-1-GLOBULIN 0.2 g/dL (0.0-0.4); ALPHA-2-GLOBULIN 0.7 g/dL (0.4-1.0); BETA GLOBULIN 1.2 g/dL (0.7-1.3); GAMMA GLOBULINS 1.2 g/dL (0.4-1.8); GLOBULIN TOTAL 3.4 g/dL (2.2-3.9); M-SPIKE Not Observed g/dL (Not Observed); TOTAL PROTEIN SERUM 6.8 g/dL (6.0-8.5)
== END 2020-06-13 18:07 | disposition home or self-care (01) | DRG 551 ==
LOC: ER 14:26 → 6EST 17:55 → EDBEDREQ 18:08 → EDBEDREQTM 18:08 → EDBEDREQSVC 19:39 → ENRESERV 21:31 → 6EST 23:05
PROVIDERS: ADMIT Internal Medicine Endocrinology, Diabetes & Metabolism; ATTEND Internal Medicine Endocrinology, Diabetes & Metabolism
DX: M48.02 Spinal stenosis, cervical region (principal); G82.50 Quadriplegia, unspecified; G95.89 Other specified diseases of spinal cord; I31.3 Pericardial effusion (noninflammatory); K59.2 Neurogenic bowel, not elsewhere classified; M48.061 Spinal stenosis, lumbar region without neurogenic claudication; E11.65 Type 2 diabetes mellitus with hyperglycemia; E78.00 Pure hypercholesterolemia, unspecified; E78.5 Hyperlipidemia, unspecified; E87.6 Hypokalemia; F32.9 Major depressive disorder, single episode, unspecified; G89.4 Chronic pain syndrome; I45.10 Unspecified right bundle-branch block; K44.9 Diaphragmatic hernia without obstruction or gangrene; K59.09 Other constipation; M47.812 Spondylosis without myelopathy or radiculopathy, cervical region; M48.04 Spinal stenosis, thoracic region; M51.34 Other intervertebral disc degeneration, thoracic region; X58.XXXA Exposure to other specified factors, initial encounter; N40.1 Benign prostatic hyperplasia with lower urinary tract symptoms; R53.81 Other malaise; R33.8 Other retention of urine; S14.109A Unspecified injury at unspecified level of cervical spinal cord, initial encounter; Z79.899 Other long term (current) drug therapy; Z80.42 Family history of malignant neoplasm of prostate; Z82.49 Family history of ischemic heart disease and other diseases of the circulatory system; Z87.891 Personal history of nicotine dependence; Z90.49 Acquired absence of other specified parts of digestive tract; Z98.1 Arthrodesis status; Y93.89 Activity, other specified; Y92.89 Other specified places as the place of occurrence of the external cause; Y99.8 Other external cause status
CPT/HCPCS: 36415; 70551; 71045; 72141; 72146; 72148; 80048; 80053; 81003; 84155; 84165; 84484; 85025; 93005; 93306; 97116; 97162; 97165; 97530; 97535; 99285; J2270; J2405; J7030

== ENCOUNTER → 2020-10-29 | Outpatient (CLI) | payer BC, MEDICARE ==
[2020-10-29 08:56] LABS: BASOPHILS % 0.8 % (0.0-2.0); EOSINOPHILS % 1.5 % (0.0-5.0); HEMATOCRIT. 41.8 % (42.0-52.0); HEMOGLOBIN. 14.1 g/dL (14.0-18.0); LYMPHOCYTES % 29.2 % (20.0-50.0); MEAN CORPUSCULAR HEMOGLOBIN 30.6 pg (28.0-32.0); MEAN CORPUSCULAR VOLUME 90.4 fL (80.0-94.0); MEAN PLATELET VOLUME 8.1 fl (7.4-10.4); MONOCYTES % 6.4 % (2.0-8.0); NEUTROPHILS % 62.1 % (40.0-76.0); PLATELET 277 x1000/uL (130-400); RED BLOOD CELL COUNT 4.63 mill/uL (4.7-6.1); RED CELL DISTRIBUTION WIDTH 14.2 % (11.6-14.6)
[2020-10-29 09:06] LABS: CHLORIDE 108 mEq/L (98-107)
[2020-10-29 09:18] LABS: LDL CHOLESTEROL 116 mg/dL (5-100)
[2020-10-29 09:19] LABS: HDL CHOLESTEROL 51 mg/dL (40-59); T4 FREE 0.94 ng/dL (0.76-1.46)
[2020-10-29 09:56] LABS: FOLIC ACID (FOLATE) SERUM >20 ng/mL ng/mL (>5.38)
[2020-10-29 10:08] LABS: VITAMIN B12 SERUM 594 pg/mL (211-911)
[2020-10-29 13:16] LABS: PROSTRATE SPECIFIC AG TOTAL 0.84 ng/mL (0.0-4.0)
[2020-10-30 09:10] LABS: RF PROFILE < 10.0 IU/mL (0.0-13.9); VITAMIN D 25-OH 48.6 ng/mL (30.0-100.0)
[2020-10-30 13:07] LABS: ANTI-NUCLEAR ANTIBODIES DIRECT Negative (Negative)
[2020-11-01 06:11] LABS: CCP IgG/IgA PROFILE 6 units (0-19)
== END | disposition home or self-care (01) ==
LOC: LAB 08:15
PROVIDERS: ATTEND Internal Medicine Endocrinology, Diabetes & Metabolism
DX: J44.9 Chronic obstructive pulmonary disease, unspecified (principal); R73.9 Hyperglycemia, unspecified; I10 Essential (primary) hypertension; N40.0 Benign prostatic hyperplasia without lower urinary tract symptoms; M54.5 Low back pain
CPT/HCPCS: 36415; 71046; 80053; 80061; 80076; 82306; 82607; 82746; 83036; 83735; 83921; 84153; 84439; 84443; 84550; 85025; 85651; 86038; 86200; 86431; G0103

== ENCOUNTER → 2020-11-15 | Outpatient (CLI) | payer BC, MEDICARE | END | disposition home or self-care (01) | LOC: MRI 09:09 | PROVIDERS: ATTEND Neurological Surgery | DX: M47.814 Spondylosis without myelopathy or radiculopathy, thoracic region (principal); M48.04 Spinal stenosis, thoracic region | CPT/HCPCS: 72146 ==

== ENCOUNTER → 2020-12-10 | Outpatient (CLI) | payer BC, MEDICARE ==
[2020-12-10 09:25] LABS: CLARITY URINE CLEAR (CLEAR); COLOR URINE YELLOW (YELLOW); KETONES URINE NEGATIVE (NEGATIVE); LEUKOCYTE ESTERASE URINE NEGATIVE (NEGATIVE); NITRITE URINE NEGATIVE (NEGATIVE); OCCULT BLOOD URINE NEGATIVE (NEGATIVE); PH URINE 7.5 (4.5-8.0); PROTEIN URINE NEGATIVE (NEGATIVE); UROBILINOGEN URINE 0.2 E.U./dL (0.2-1.0)
[2020-12-10 09:30] LABS: BASOPHILS % 0.8 % (0.0-2.0); EOSINOPHILS % 4.1 % (0.0-5.0); HEMATOCRIT. 43.3 % (42.0-52.0); HEMOGLOBIN. 14.8 g/dL (14.0-18.0); LYMPHOCYTES % 41.8 % (20.0-50.0); MEAN CORPUSCULAR VOLUME 90.7 fL (80.0-94.0); MEAN PLATELET VOLUME 8.2 fl (7.4-10.4); MONOCYTES % 6.1 % (2.0-8.0); NEUTROPHILS % 47.2 % (40.0-76.0); PLATELET 242 x1000/uL (130-400); RED BLOOD CELL COUNT 4.77 mill/uL (4.7-6.1); RED CELL DISTRIBUTION WIDTH 14.2 % (11.6-14.6)
[2020-12-10 09:33] LABS: CHLORIDE 104 mEq/L (98-107)
[2020-12-10 09:40] LABS: LDL CHOLESTEROL 110 mg/dL (5-100)
[2020-12-10 09:42] LABS: HDL CHOLESTEROL 49 mg/dL (40-59); T4 FREE 1.03 ng/dL (0.76-1.46)
== END | disposition home or self-care (01) ==
LOC: LAB 08:41
PROVIDERS: ATTEND Internal Medicine Endocrinology, Diabetes & Metabolism
DX: E78.5 Hyperlipidemia, unspecified (principal); E55.9 Vitamin D deficiency, unspecified; R31.9 Hematuria, unspecified; R73.9 Hyperglycemia, unspecified; J18.9 Pneumonia, unspecified organism
CPT/HCPCS: 36415; 71046; 80053; 80061; 81003; 82306; 83036; 84439; 84443; 85025

== ENCOUNTER → 2021-05-28 | Outpatient (CLI) | payer BC, MEDICARE ==
[~2021-05-28] MED LIST changes: +HYDR-4348 MT
== END | disposition home or self-care (01) ==
LOC: MRI 09:30
PROVIDERS: ATTEND Neurological Surgery
DX: M48.04 Spinal stenosis, thoracic region (principal); M47.814 Spondylosis without myelopathy or radiculopathy, thoracic region; M51.34 Other intervertebral disc degeneration, thoracic region; M25.78 Osteophyte, vertebrae
CPT/HCPCS: 72146

== ENCOUNTER 2021-07-20 14:55 | Inpatient (IN) | payer BC, MEDICARE ==
[~2021-07-20] VITALS: Ht 167.6 cm; Wt 81.8 kg
[~2021-07-20 14:55] MED LIST changes: -OMEP40CA12 PO; +OMEP40CA20 PO
[2021-07-20 20:00] VITALS: BP 136/82
[2021-07-21] VITALS (7 sets, daily range): BP systolic 96–136; BP diastolic 62–82
[2021-07-21] MEDS ORDERED: HYDR-4346 PO (00:19)
[2021-07-21] MEDS ORDERED: BACL-141 PO (00:19)
[2021-07-21] MEDS ORDERED: SIMV-43 PO (00:19)
[2021-07-21] MEDS ORDERED: LORA-249 PO (00:19)
[2021-07-21] MEDS ORDERED: OMEP40CA20 PO (00:19)
[2021-07-21] MEDS ORDERED: NALOXONE HCL 0.4MG/ML VIAL IV PRN (01:15)
[2021-07-21] MEDS: DIPHENHYDRAMINE 50MG CAPSULE PO PRN ×3 (01:19→18:43)
[2021-07-21] MEDS: LORAZEPAM 1MG TABLET PO PRN ×2 (01:19→14:21)
[2021-07-21] MEDS: HYDROCODONE/ACETAMINOPHEN 10/325MG TABLET PO PRN ×3 (01:19→18:44)
[2021-07-21] MEDS: NITROGLYCERIN OINT 1GM/INCH UDPKT TD SCH ×3 (05:16→21:13)
[2021-07-21 06:43] LABS: BASOPHILS % 0.2 % (0.0-2.0); EOSINOPHILS % 9.7 % (0.0-5.0); HEMATOCRIT. 43.7 % (42.0-52.0); HEMOGLOBIN. 14.8 g/dL (14.0-18.0); LYMPHOCYTES % 23.8 % (20.0-50.0); MEAN CORPUSCULAR HEMOGLOBIN 30.6 pg (28.0-32.0); MEAN CORPUSCULAR VOLUME 90.1 fL (80.0-94.0); MEAN PLATELET VOLUME 8.8 fl (7.4-10.4); MONOCYTES % 6.9 % (2.0-8.0); NEUTROPHILS % 59.4 % (40.0-76.0); PLATELET 241 x1000/uL (130-400); RED BLOOD CELL COUNT 4.85 mill/uL (4.7-6.1); RED CELL DISTRIBUTION WIDTH 13.5 % (11.6-14.6)
[2021-07-21 07:47] LABS: CHLORIDE 104 mEq/L (98-107)
[2021-07-21 07:58] LABS: HDL CHOLESTEROL 51 mg/dL (40-59); LDL CHOLESTEROL 83 mg/dL (5-100)
[2021-07-21] MEDS ORDERED: POTASSIUM CHLORIDE 20MEQ TABLET SR PO NR (08:30)
[2021-07-21] MEDS: METOPROLOL TARTRATE 50MG TABLET PO SCH ×2 (09:00→21:13)
[2021-07-21] MEDS ORDERED: BETAMETHASONE DIPROPIONATE 0.05% LOTION 60ML TOP SCH (09:00)
[2021-07-21] MEDS ORDERED: AMLODIPINE 5MG TABLET PO SCH (09:00)
[2021-07-21] MEDS: ASPIRIN 81MG TABLET PO SCH (09:05)
[2021-07-21] MEDS: ENOXAPARIN 40MG/0.4ML SYR SUBCUT SCH (09:05)
[2021-07-21] MEDS ORDERED: TAMS-11 MT (10:16)
[2021-07-21] MEDS: TAMSULOSIN HCL 0.4MG SR CAPSULE PO SCH (11:53)
[2021-07-21] MEDS: HYDROXYZINE 25MG TABLET PO PRN (11:55)
[2021-07-21] MEDS: ATORVASTATIN CALCIUM 40MG TABLET PO SCH (21:12)
[2021-07-21] MEDS: MIRTAZAPINE 15MG TABLET PO SCH (21:13)
[2021-07-22] VITALS (10 sets, daily range): BP systolic 96–133; BP diastolic 50–79
[2021-07-22] MEDS: HYDROCODONE/ACETAMINOPHEN 10/325MG TABLET PO PRN ×3 (00:19→23:49)
[2021-07-22] MEDS: HYDROXYZINE 25MG TABLET PO PRN (00:24)
[2021-07-22] MEDS: NITROGLYCERIN OINT 1GM/INCH UDPKT TD SCH ×3 (06:33→21:10)
[2021-07-22] MEDS: ENOXAPARIN 40MG/0.4ML SYR SUBCUT SCH (08:33)
[2021-07-22] MEDS: MIRTAZAPINE 15MG TABLET PO SCH (08:34)
[2021-07-22] MEDS: TAMSULOSIN HCL 0.4MG SR CAPSULE PO SCH (08:34)
[2021-07-22] MEDS: ASPIRIN 81MG TABLET PO SCH (08:34)
[2021-07-22] MEDS: METOPROLOL TARTRATE 50MG TABLET PO SCH ×2 (08:36→21:11)
[2021-07-22] MEDS: LORAZEPAM 1MG TABLET PO PRN ×2 (08:40→15:25)
[2021-07-22] MEDS ORDERED: NICARDIPINE 100MCG/ML 10ML VIAL (CATH LAB) IV ONE (09:24)
[2021-07-22] MEDS ORDERED: NITROGLYCERIN 50MCG/ML 10ML VIAL (CATH LAB) IV ONE (09:24)
[2021-07-22] MEDS ORDERED: VERAPAMIL HCL 2.5 MG/1 ML 2ML VIAL IV ONE (13:12)
[2021-07-22] MEDS ORDERED: IODIXANOL 320MG/ML 100 ML BOTTLE IV ONE (13:12)
[2021-07-22] MEDS ORDERED: LIDOCAINE HCL 1% 20ML VIAL (Pyxis) INJ ONE (13:12)
[2021-07-22] MEDS ORDERED: FENTANYL CITRATE/PF 50MCG/ML 2ML VIAL ONE (13:13)
[2021-07-22] MEDS ORDERED: MIDAZOLAM HCL 2 MG/2 ML VIAL ONE ×2 (13:13→13:59)
[2021-07-22] MEDS ORDERED: HEPARIN 1000 UNITS/ML 10ML ONE (13:44)
[2021-07-22] MEDS ORDERED: DIPHENHYDRAMINE 50MG/ML VIAL ONE (14:00)
[2021-07-22] MEDS: DIPHENHYDRAMINE 50MG CAPSULE PO PRN (16:34)
[2021-07-22] MEDS ORDERED: NITROGLYCERIN 0.4MG TABLET SL SL PRN (18:00)
[2021-07-22] MEDS ORDERED: ACETAMINOPHEN 325MG TABLET PO PRN (18:00)
[2021-07-22] MEDS: PANTOPRAZOLE SODIUM 40 MG/VIAL IV SCH (18:50)
[2021-07-22] MEDS ORDERED: DOCUSATE SODIUM 100MG CAPSULE PO SCH (21:00)
[2021-07-22] MEDS ORDERED: BISACODYL 10MG SUPP PR PRN (21:00)
[2021-07-22] MEDS: ATORVASTATIN CALCIUM 40MG TABLET PO SCH (21:11)
[2021-07-23] VITALS (14 sets, daily range): BP systolic 93–142; BP diastolic 57–84
[2021-07-23] MEDS: NITROGLYCERIN OINT 1GM/INCH UDPKT TD SCH ×3 (05:31→22:39)
[2021-07-23 06:53] LABS: CHLORIDE 104 mEq/L (98-107)
[2021-07-23] MEDS: PANTOPRAZOLE SODIUM 40 MG/VIAL IV SCH (07:54)
[2021-07-23] MEDS: MIRTAZAPINE 15MG TABLET PO SCH (07:55)
[2021-07-23] MEDS: ASPIRIN 81MG TABLET PO SCH (07:55)
[2021-07-23] MEDS: TAMSULOSIN HCL 0.4MG SR CAPSULE PO SCH (07:55)
[2021-07-23] MEDS: METOPROLOL TARTRATE 50MG TABLET PO SCH ×2 (07:56→20:21)
[2021-07-23] MEDS: ENOXAPARIN 40MG/0.4ML SYR SUBCUT SCH (07:56)
[2021-07-23] MEDS: BETAMETHASONE DIPROPIONATE 0.05% LOTION 60ML TOP SCH ×4 (07:57→20:26)
[2021-07-23] MEDS: HYDROCODONE/ACETAMINOPHEN 10/325MG TABLET PO PRN ×3 (08:03→20:20)
[2021-07-23] MEDS ORDERED: POTASSIUM CHLORIDE 20MEQ TABLET SR PO SCH (08:30)
[2021-07-23] MEDS: HYDROCORTISONE 2.5% OINT 20GM TOP SCH ×2 (14:12→20:26)
[2021-07-23 16:43] LABS: PARTIAL THROMBOPLASTIN TIME 27.6 sec (23.4-31.0); PROTHROMBIN TIME 10.3 sec (9.6-11.0)
[2021-07-23] MEDS: LORAZEPAM 1MG TABLET PO PRN ×2 (18:46→22:32)
[2021-07-23] MEDS: ATORVASTATIN CALCIUM 40MG TABLET PO SCH (20:17)
[2021-07-23] MEDS: ALLOPURINOL 300 MG TABLET PO SCH (20:17)
[2021-07-23] MEDS ORDERED: DIPHENHYDRAMINE 25MG CAPSULE PO PRN (21:00)
[2021-07-23] MEDS ORDERED: CHLORHEXIDINE GLUCONATE 4% EXTERNAL USE TOP SCH (21:00)
[2021-07-23] MEDS ORDERED: ASCORBIC ACID 500 MG TABLET PO SCH (21:00)
[2021-07-23] MEDS: IPRATROPIUM/ALBUTEROL 0.5-3(2.5)MG/3ML NEB HHN SCH (21:15)
[2021-07-24] VITALS (42 sets, daily range): BP systolic 77–154; BP diastolic 23–86
[2021-07-24] MEDS: ALLOPURINOL 300 MG TABLET PO SCH (05:51)
[2021-07-24] MEDS: NITROGLYCERIN OINT 1GM/INCH UDPKT TD SCH ×3 (05:58→22:52)
[2021-07-24 07:10] LABS: BASOPHILS % 0.2 % (0.0-2.0); EOSINOPHILS % 10.2 % (0.0-5.0); HEMATOCRIT. 37.5 % (42.0-52.0); HEMOGLOBIN. 12.9 g/dL (14.0-18.0); LYMPHOCYTES % 29.9 % (20.0-50.0); MEAN CORPUSCULAR HEMOGLOBIN 30.9 pg (28.0-32.0); MEAN CORPUSCULAR VOLUME 89.8 fL (80.0-94.0); MONOCYTES % 7.6 % (2.0-8.0); NEUTROPHILS % 52.1 % (40.0-76.0); PLATELET 208 x1000/uL (130-400); RED BLOOD CELL COUNT 4.17 mill/uL (4.7-6.1)
[2021-07-24 07:25] LABS: CHLORIDE 107 mEq/L (98-107)
[2021-07-24] MEDS: HYDROCODONE/ACETAMINOPHEN 10/325MG TABLET PO PRN ×2 (07:34→21:57)
[2021-07-24] MEDS ORDERED: DOPAMINE 400MG/250ML PREMIX 250 ML IV ONE (08:02)
[2021-07-24] MEDS ORDERED: ACETAMINOPHEN 500MG TABLET ONE (08:02)
[2021-07-24] MEDS: METOPROLOL TARTRATE 50MG TABLET PO SCH (08:12)
[2021-07-24] MEDS: MIRTAZAPINE 15MG TABLET PO SCH (08:12)
[2021-07-24] MEDS: PANTOPRAZOLE SODIUM 40 MG/VIAL IV SCH (08:12)
[2021-07-24] MEDS: ASPIRIN 81MG TABLET PO SCH ×2 (08:12→21:44)
[2021-07-24] MEDS: TAMSULOSIN HCL 0.4MG SR CAPSULE PO SCH (08:13)
[2021-07-24] MEDS ORDERED: MAGNESIUM SULFATE 1G IN DEXT 5% 100ML PREMIX IV ONE (08:16)
[2021-07-24] MEDS ORDERED: POTASSIUM CHLORIDE 10MEQ IN WATER 50ML PREMIX IV ONE (08:16)
[2021-07-24] MEDS: HYDROCORTISONE 2.5% OINT 20GM TOP SCH ×2 (08:16→21:45)
[2021-07-24] MEDS ORDERED: HEPARIN 10,000 UNITS/ML VIAL ONE ×4 (08:16→11:51)
[2021-07-24] MEDS ORDERED: MAGNESIUM SULFATE 5GM/10ML VIAL IV ONE (08:16)
[2021-07-24] MEDS ORDERED: ALBUMIN HUMAN 12.5G/250ML (5%) IV ONE (08:16)
[2021-07-24] MEDS ORDERED: CEFAZOLIN 2,000 MG in DEXT 5% WATER 100 ML IV SCH (09:00)
[2021-07-24] MEDS ORDERED: NICARDIPINE 50 MG in NS 230 ML IV SCH (09:00)
[2021-07-24] MEDS ORDERED: INSULIN REGULAR (DRIP) 100 UNITS in SODIUM CHLORIDE 0.9% 99 ML IV SCH ×2 (09:00→12:45)
[2021-07-24] MEDS ORDERED: PAPAVERINE HCL 180MG in SODIUM CHLORIDE 0.9% 24ML IV SCH (09:00)
[2021-07-24] MEDS: BETAMETHASONE DIPROPIONATE 0.05% LOTION 60ML TOP SCH ×2 (09:00→21:45)
[2021-07-24] MEDS ORDERED: NOREPINEPHRINE 8 MG in DEXT 5% WATER 242 ML IV SCH (09:00)
[2021-07-24] MEDS ORDERED: EPINEPHRINE 5 MG in DEXT 5% WATER 245 ML IV SCH ×2 (09:00→16:30)
[2021-07-24] MEDS ORDERED: CHLORHEXIDINE GLUCONATE 4% EXTERNAL USE TOP SCH (09:00)
[2021-07-24] MEDS ORDERED: DEL NIDO ELECTROLYTE-S(PH 7.4) 1,000 ML IV SCH ×2 (09:00)
[2021-07-24] MEDS ORDERED: AMINOCAPROIC ACID 5,000 MG in SODIUM CHLORIDE 0.9% 230 ML IV SCH (09:00)
[2021-07-24] MEDS ORDERED: THROMBIN (BOVINE) 5000 UNITS/VIAL TOP ONE (09:18)
[2021-07-24] MEDS ORDERED: SODIUM CHLORIDE 0.9% INJ 10ML FLUSH IVF ONE (09:18)
[2021-07-24] MEDS ORDERED: SODIUM CHLORIDE 0.9% IR ONE (09:19)
[2021-07-24] MEDS ORDERED: POLYMYXIN B SULFATE 500000 UNITS/VIAL ONE (09:19)
[2021-07-24] MEDS ORDERED: HEPARIN 1000 UNITS/ML 10ML ONE (09:25)
[2021-07-24 10:58] LABS: CLARITY URINE CLEAR (CLEAR); COLOR URINE YELLOW (YELLOW); KETONES URINE TRACE (NEGATIVE); LEUKOCYTE ESTERASE URINE NEGATIVE (NEGATIVE); NITRITE URINE NEGATIVE (NEGATIVE); OCCULT BLOOD URINE NEGATIVE (NEGATIVE); PROTEIN URINE NEGATIVE (NEGATIVE); SPECIFIC GRAVITY URINE 1.012 (1.005-1.030); UROBILINOGEN URINE 0.2 E.U./dL (0.2-1.0)
[2021-07-24] MEDS ORDERED: BLOOD SUGAR DIAGNOSTIC STRIP TEST NR (11:00)
[2021-07-24] MEDS ORDERED: VANCOMYCIN 1 G PREMIX 200 ML IV ONE (11:00)
[2021-07-24] MEDS ORDERED: CEFAZOLIN 2,000 MG in DEXT 5% WATER 100 ML IV ONE (11:00)
[2021-07-24] MEDS ORDERED: PROPOFOL 10MG/ML 100ML 100 ML IV ONE (11:38)
[2021-07-24] MEDS ORDERED: PROPOFOL 200MG/20ML VIAL IV ONE ×2 (11:38→14:16)
[2021-07-24] MEDS ORDERED: METOCLOPRAMIDE HCL 10MG/2ML VIAL ONE (11:39)
[2021-07-24] MEDS ORDERED: ONDANSETRON HCL 4MG/2ML INJ ONE (11:39)
[2021-07-24] MEDS ORDERED: VECURONIUM BROMIDE 10 MG/VIAL IV ONE (11:41)
[2021-07-24] MEDS ORDERED: CEFAZOLIN SODIUM 1000MG/VIAL ONE (11:46)
[2021-07-24] MEDS ORDERED: LABETALOL HCL 5MG/ML VIAL 20ML IV ONE (11:46)
[2021-07-24] MEDS ORDERED: CALCIUM CHLORIDE 1GM/10ML SYR IV ONE ×2 (11:54→15:03)
[2021-07-24] MEDS ORDERED: LIDOCAINE HCL 2% 5ML SYRINGE IV ONE (11:54)
[2021-07-24] MEDS ORDERED: MIDAZOLAM HCL 2 MG/2 ML VIAL ONE (12:40)
[2021-07-24] MEDS ORDERED: FENTANYL CITRATE/PF 50MCG/ML 2ML VIAL ONE (12:40)
[2021-07-24] MEDS ORDERED: BLOOD SUGAR DIAGNOSTIC STRIP TEST SCH (12:45)
[2021-07-24] MEDS ORDERED: KCL 10MEQ/50ML PREMIX 150 ML IV PRN (12:45)
[2021-07-24] MEDS ORDERED: KCL 10MEQ/50ML PREMIX 200 ML IV PRN (12:45)
[2021-07-24] MEDS ORDERED: DEXTROSE 50% WATER 50ML SYRINGE IV PRN ×3 (12:45→21:30)
[2021-07-24] MEDS ORDERED: SKIN ADHESIVE 0.7 GM EA TOP ONE ×2 (13:02→13:03)
[2021-07-24] MEDS ORDERED: BACITRACIN 15GM TUBE TOP ONE (13:03)
[2021-07-24] MEDS ORDERED: FENTANYL CITRATE/PF 50MCG/ML 5ML VIAL ONE (13:37)
[2021-07-24] MEDS ORDERED: HYDRALAZINE 20MG/ML VIAL ONE (13:48)
[2021-07-24] MEDS ORDERED: FUROSEMIDE 100MG/10ML VIAL ONE (14:12)
[2021-07-24] MEDS ORDERED: ALBUMIN HUMAN 25GM/100ML (25%) IV ONE (14:24)
[2021-07-24] MEDS ORDERED: NEOSTIGMINE METHYLSULFATE 1MG/ML 10 ML VIAL ONE (14:52)
[2021-07-24] MEDS ORDERED: GLYCOPYRROLATE 0.2 MG/ML 2ML VIAL ONE (14:52)
[2021-07-24] MEDS ORDERED: PROTAMINE SULFATE 10MG/ML VIAL 25ML IV ONE ×2 (15:12→15:27)
[2021-07-24] MEDS ORDERED: KCL 20MEQ/100ML PREMIX 100 ML IV ONE (15:48)
[2021-07-24] MEDS ORDERED: MAGNESIUM SULFATE 3 GM in DEXT 5% WATER 100 ML IV PRN (16:00)
[2021-07-24] MEDS ORDERED: ALBUMIN HUMAN 12.5G/250ML (5%) IV PRN (16:00)
[2021-07-24] MEDS ORDERED: ONDANSETRON HCL 4MG/2ML INJ IV PRN (16:00)
[2021-07-24] MEDS: BLOOD SUGAR DIAGNOSTIC STRIP TEST SCH ×5 (16:00→22:00)
[2021-07-24] MEDS ORDERED: MAGNESIUM 2 G PREMIX 50 ML IV PRN (16:00)
[2021-07-24] MEDS ORDERED: CALCIUM CHLORIDE 3,000 MG in DEXT 5% WATER 250 ML IV PRN (16:00)
[2021-07-24] MEDS ORDERED: ALBUMIN HUMAN 25GM/100ML (25%) IV PRN (16:00)
[2021-07-24] MEDS ORDERED: ACETAMINOPHEN 325MG TABLET PO PRN (16:00)
[2021-07-24] MEDS ORDERED: DEXMEDETOMIDINE 400 MCG/100 ML 100 ML IV ONE (16:24)
[2021-07-24] MEDS ORDERED: HYDROMORPHONE HCL/PF 2MG/ML (OR) ONE (16:26)
[2021-07-24] MEDS ORDERED: DOPAMINE 400MG/250ML PREMIX 250 ML IV SCH (16:30)
[2021-07-24 16:49] LABS: BG CARBOXYHEMOGLOBIN 0.3 % (0.5-1.5); BG DEOXYHEMOGLOBIN 2.6 % (0.0-5.0); BG FRACTION INSPIRED OXYGEN 99.8; BG METHEMOGLOBIN 0.5 % (0.0-1.5); BG OXYGEN SATURATION 97.4 % (92.0-98.5); BG OXYHEMOGLOBIN 96.6 % (94.0-97.0); BG PCO2 42.4 mmHg (35.0-45.0); BG PH 7.313 (7.350-7.450); BG PO2 110.1 mmHg (75.0-100.0); BG SAMPLE SITE ALINE; BG TOTAL HEMOGLOBIN 12.2 g/dL (12.0-18.0); BG VENT MODE MASK - NRB
[2021-07-24] MEDS: DOCUSATE SODIUM 100MG CAPSULE PO SCH (17:00)
[2021-07-24] MEDS: MAGNESIUM HYDROXIDE 400MG/5ML 30ML UDC PO SCH ×2 (17:00→21:44)
[2021-07-24] MEDS: BACITRACIN 15GM TUBE TOP SCH (17:00)
[2021-07-24 17:05] LABS: EOSINOPHILS % 4.4 % (0.0-5.0); HEMATOCRIT. 24.9 % (42.0-52.0); HEMOGLOBIN. 8.4 g/dL (14.0-18.0); LYMPHOCYTES % 13.5 % (20.0-50.0); MEAN CORPUSCULAR HEMOGLOBIN 30.6 pg (28.0-32.0); MEAN CORPUSCULAR VOLUME 91.1 fL (80.0-94.0); MEAN PLATELET VOLUME 8.8 fl (7.4-10.4); MONOCYTES % 5.5 % (2.0-8.0); NEUTROPHILS % 76.6 % (40.0-76.0); PLATELET 139 x1000/uL (130-400); RED BLOOD CELL COUNT 2.73 mill/uL (4.7-6.1)
[2021-07-24 17:10] LABS: CHLORIDE 115 mEq/L (98-107)
[2021-07-24] MEDS ORDERED: DEXT 5%/0.45% NACL 1000ML 1,000 ML IV SCH (17:15)
[2021-07-24] MEDS: MORPHINE SULFATE 2 MG/ML CPJ (NOT FOR IM USE) IV PRN ×2 (17:46→20:08)
[2021-07-24] MEDS: KCL 10MEQ/50ML PREMIX 100 ML IV PRN (17:52)
[2021-07-24] MEDS ORDERED: CEFAZOLIN 1000MG PREMIX 50 ML IV SCH (18:00)
[2021-07-24] MEDS: MAGNESIUM 1 G PREMIX 100 ML IV PRN ×2 (18:16→23:28)
[2021-07-24] MEDS: CEFAZOLIN 1000MG PREMIX 50 ML IV SCH (18:23)
[2021-07-24] MEDS: DIPHENHYDRAMINE 50MG CAPSULE PO PRN (19:38)
[2021-07-24] MEDS: LORAZEPAM 1MG TABLET PO PRN (19:38)
[2021-07-24] MEDS: KETOROLAC 30MG/ML VIAL IV PRN (19:38)
[2021-07-24] MEDS ORDERED: INSULIN REGULAR (DRIP) 100 UNITS in SODIUM CHLORIDE 0.9% 100 ML IV SCH (21:30)
[2021-07-24] MEDS: ATORVASTATIN CALCIUM 40MG TABLET PO SCH (21:44)
[2021-07-24] MEDS: CLOPIDOGREL 75MG TABLET PO SCH (21:46)
[2021-07-25] VITALS (94 sets, daily range): BP systolic 66–146; BP diastolic 24–109
[2021-07-25 00:34] LABS: BASOPHILS % 0.1 % (0.0-2.0); EOSINOPHILS % 1.7 % (0.0-5.0); HEMATOCRIT. 33.6 % (42.0-52.0); HEMOGLOBIN. 11.7 g/dL (14.0-18.0); LYMPHOCYTES % 10.8 % (20.0-50.0); MEAN CORPUSCULAR HEMOGLOBIN 31.1 pg (28.0-32.0); MEAN CORPUSCULAR VOLUME 89.5 fL (80.0-94.0); MEAN PLATELET VOLUME 8.6 fl (7.4-10.4); MONOCYTES % 7.6 % (2.0-8.0); NEUTROPHILS % 79.8 % (40.0-76.0); PLATELET 200 x1000/uL (130-400); RED BLOOD CELL COUNT 3.75 mill/uL (4.7-6.1); RED CELL DISTRIBUTION WIDTH 13.2 % (11.6-14.6)
[2021-07-25 00:43] LABS: CHLORIDE 105 mEq/L (98-107)
[2021-07-25] MEDS: OXYCODONE HCL/ACETAMINOPHEN 5/325MG TABLET PO PRN ×3 (01:09→10:20)
[2021-07-25] MEDS: MAGNESIUM HYDROXIDE 400MG/5ML 30ML UDC PO SCH ×5 (01:11→16:09)
[2021-07-25] MEDS: IPRATROPIUM/ALBUTEROL 0.5-3(2.5)MG/3ML NEB HHN SCH ×6 (01:16→20:08)
[2021-07-25] MEDS: MAGNESIUM 1 G PREMIX 100 ML IV PRN (01:34)
[2021-07-25] MEDS: CEFAZOLIN 1000MG PREMIX 50 ML IV SCH ×3 (02:16→17:11)
[2021-07-25] MEDS ORDERED: INSULIN REGULAR (DRIP) 100 UNITS in SODIUM CHLORIDE 0.9% 99 ML IV SCH (04:00)
[2021-07-25] MEDS: BLOOD SUGAR DIAGNOSTIC STRIP TEST SCH ×8 (04:36→21:57)
[2021-07-25] MEDS: NITROGLYCERIN OINT 1GM/INCH UDPKT TD SCH ×3 (06:41→22:00)
[2021-07-25] MEDS: HYDROCORTISONE 2.5% OINT 20GM TOP SCH ×2 (07:05→22:02)
[2021-07-25] MEDS: BETAMETHASONE DIPROPIONATE 0.05% LOTION 60ML TOP SCH ×2 (07:06→22:02)
[2021-07-25 07:08] LABS: BASOPHILS % 0.2 % (0.0-2.0); EOSINOPHILS % 1.1 % (0.0-5.0); HEMOGLOBIN. 10.7 g/dL (14.0-18.0); LYMPHOCYTES % 15.3 % (20.0-50.0); MEAN CORPUSCULAR HEMOGLOBIN 31.1 pg (28.0-32.0); MEAN CORPUSCULAR VOLUME 90.5 fL (80.0-94.0); MEAN PLATELET VOLUME 9.1 fl (7.4-10.4); MONOCYTES % 8.7 % (2.0-8.0); NEUTROPHILS % 74.7 % (40.0-76.0); PLATELET 172 x1000/uL (130-400); RED BLOOD CELL COUNT 3.43 mill/uL (4.7-6.1); RED CELL DISTRIBUTION WIDTH 12.9 % (11.6-14.6)
[2021-07-25] MEDS: PANTOPRAZOLE SODIUM 40 MG/VIAL IV SCH (08:13)
[2021-07-25] MEDS: MIRTAZAPINE 15MG TABLET PO SCH (08:14)
[2021-07-25] MEDS: CLOPIDOGREL 75MG TABLET PO SCH (08:14)
[2021-07-25] MEDS: ASPIRIN 81MG TABLET PO SCH (08:14)
[2021-07-25] MEDS: DOCUSATE SODIUM 100MG CAPSULE PO SCH (08:14)
[2021-07-25 08:16] LABS: CHLORIDE 108 mEq/L (98-107)
[2021-07-25] MEDS: TAMSULOSIN HCL 0.4MG SR CAPSULE PO SCH (08:20)
[2021-07-25] MEDS: BACITRACIN 15GM TUBE TOP SCH ×2 (08:21→16:10)
[2021-07-25] MEDS ORDERED: FAMOTIDINE 20MG/2ML VIAL IV SCH (09:00)
[2021-07-25] MEDS: KCL 10MEQ/50ML PREMIX 100 ML IV PRN (09:27)
[2021-07-25] MEDS ORDERED: FUROSEMIDE 40MG/4ML VIAL IVP NR (10:30)
[2021-07-25] MEDS ORDERED: DEXTROSE 50% WATER 50ML SYRINGE IV PRN (10:45)
[2021-07-25] MEDS ORDERED: BLOOD SUGAR DIAGNOSTIC STRIP TEST SCH (12:50)
[2021-07-25] MEDS: INSULIN LISPRO (LOW DOSE) 100 UNITS/ML SUBCUT SCH ×3 (12:59→22:08)
[2021-07-25] MEDS: MORPHINE SULFATE 2 MG/ML CPJ (NOT FOR IM USE) IV PRN ×2 (14:02→17:50)
[2021-07-25] MEDS: DOCUSATE SODIUM 250MG CAPSULE PO SCH (16:09)
[2021-07-25] MEDS ORDERED: ALBUMIN HUMAN 25GM/100ML (25%) IV NR (16:45)
[2021-07-25] MEDS: HYDROXYZINE 25MG TABLET PO PRN (18:11)
[2021-07-25] MEDS: DIPHENHYDRAMINE 50MG CAPSULE PO PRN ×2 (18:11→21:36)
[2021-07-25] MEDS: KETOROLAC 30MG/ML VIAL IV PRN (20:04)
[2021-07-25] MEDS: ATORVASTATIN CALCIUM 40MG TABLET PO SCH (21:36)
[2021-07-25] MEDS: FAMOTIDINE 20MG TABLET PO SCH (21:36)
[2021-07-26] VITALS (50 sets, daily range): BP systolic 82–141; BP diastolic 46–90
[2021-07-26] MEDS: OXYCODONE HCL/ACETAMINOPHEN 5/325MG TABLET PO PRN ×3 (02:21→17:22)
[2021-07-26] MEDS: IPRATROPIUM/ALBUTEROL 0.5-3(2.5)MG/3ML NEB HHN SCH ×5 (04:24→20:27)
[2021-07-26 07:03] LABS: BASOPHILS % 0.2 % (0.0-2.0); EOSINOPHILS % 4.6 % (0.0-5.0); HEMATOCRIT. 33.9 % (42.0-52.0); HEMOGLOBIN. 11.6 g/dL (14.0-18.0); LYMPHOCYTES % 20.7 % (20.0-50.0); MEAN CORPUSCULAR HEMOGLOBIN 30.8 pg (28.0-32.0); MEAN CORPUSCULAR VOLUME 90.3 fL (80.0-94.0); MEAN PLATELET VOLUME 9.4 fl (7.4-10.4); MONOCYTES % 6.5 % (2.0-8.0); PLATELET 202 x1000/uL (130-400); RED BLOOD CELL COUNT 3.75 mill/uL (4.7-6.1); RED CELL DISTRIBUTION WIDTH 13.5 % (11.6-14.6)
[2021-07-26] MEDS: BLOOD SUGAR DIAGNOSTIC STRIP TEST SCH ×4 (07:19→20:59)
[2021-07-26] MEDS: INSULIN LISPRO (LOW DOSE) 100 UNITS/ML SUBCUT SCH ×4 (07:19→20:58)
[2021-07-26] MEDS: NITROGLYCERIN OINT 1GM/INCH UDPKT TD SCH ×3 (07:24→22:24)
[2021-07-26 07:26] LABS: CHLORIDE 104 mEq/L (98-107)
[2021-07-26] MEDS: MORPHINE SULFATE 2 MG/ML CPJ (NOT FOR IM USE) IV PRN (08:01)
[2021-07-26] MEDS: ASPIRIN 81MG TABLET PO SCH (08:50)
[2021-07-26] MEDS: DOCUSATE SODIUM 250MG CAPSULE PO SCH ×2 (08:50→17:21)
[2021-07-26] MEDS: FAMOTIDINE 20MG TABLET PO SCH ×2 (08:51→20:58)
[2021-07-26] MEDS: MIRTAZAPINE 15MG TABLET PO SCH (08:51)
[2021-07-26] MEDS: CLOPIDOGREL 75MG TABLET PO SCH (08:51)
[2021-07-26] MEDS: TAMSULOSIN HCL 0.4MG SR CAPSULE PO SCH (08:53)
[2021-07-26] MEDS: KCL 10MEQ/50ML PREMIX 100 ML IV PRN (08:54)
[2021-07-26] MEDS: HYDROCORTISONE 2.5% OINT 20GM TOP SCH ×3 (09:00→21:03)
[2021-07-26] MEDS: BETAMETHASONE DIPROPIONATE 0.05% LOTION 60ML TOP SCH ×3 (09:00→21:03)
[2021-07-26] MEDS: BACITRACIN 15GM TUBE TOP SCH ×2 (09:13→17:21)
[2021-07-26] MEDS: DIPHENHYDRAMINE 50MG CAPSULE PO PRN (12:25)
[2021-07-26] MEDS ORDERED: FUROSEMIDE 40MG/4ML VIAL IVP SCH (13:00)
[2021-07-26] MEDS ORDERED: HYDROXYZINE 25MG TABLET PO PRN (15:30)
[2021-07-26] MEDS: ATORVASTATIN CALCIUM 40MG TABLET PO SCH (20:58)
[2021-07-27] VITALS (12 sets, daily range): BP systolic 107–169; BP diastolic 35–92
[2021-07-27] MEDS: IPRATROPIUM/ALBUTEROL 0.5-3(2.5)MG/3ML NEB HHN SCH ×6 (00:33→21:39)
[2021-07-27] MEDS: OXYCODONE HCL/ACETAMINOPHEN 5/325MG TABLET PO PRN ×2 (00:48→08:29)
[2021-07-27 05:29] LABS: BASOPHILS % 0.5 % (0.0-2.0); EOSINOPHILS % 4.6 % (0.0-5.0); HEMATOCRIT. 33.5 % (42.0-52.0); HEMOGLOBIN. 11.3 g/dL (14.0-18.0); LYMPHOCYTES % 20.2 % (20.0-50.0); MEAN CORPUSCULAR HEMOGLOBIN 30.7 pg (28.0-32.0); MEAN CORPUSCULAR VOLUME 91.3 fL (80.0-94.0); MEAN PLATELET VOLUME 9.2 fl (7.4-10.4); MONOCYTES % 6.9 % (2.0-8.0); NEUTROPHILS % 67.8 % (40.0-76.0); PLATELET 212 x1000/uL (130-400); RED BLOOD CELL COUNT 3.67 mill/uL (4.7-6.1); RED CELL DISTRIBUTION WIDTH 13.3 % (11.6-14.6)
[2021-07-27 05:33] LABS: CHLORIDE 105 mEq/L (98-107)
[2021-07-27] MEDS: NITROGLYCERIN OINT 1GM/INCH UDPKT TD SCH ×3 (06:16→22:00)
[2021-07-27] MEDS: BLOOD SUGAR DIAGNOSTIC STRIP TEST SCH ×4 (06:16→20:57)
[2021-07-27] MEDS: INSULIN LISPRO (LOW DOSE) 100 UNITS/ML SUBCUT SCH ×4 (07:20→20:57)
[2021-07-27] MEDS: DOCUSATE SODIUM 250MG CAPSULE PO SCH ×2 (08:27→17:31)
[2021-07-27] MEDS: ASPIRIN 81MG TABLET PO SCH (08:28)
[2021-07-27] MEDS: MIRTAZAPINE 15MG TABLET PO SCH (08:28)
[2021-07-27] MEDS: FAMOTIDINE 20MG TABLET PO SCH ×2 (08:28→20:55)
[2021-07-27] MEDS: CLOPIDOGREL 75MG TABLET PO SCH (08:28)
[2021-07-27] MEDS: TAMSULOSIN HCL 0.4MG SR CAPSULE PO SCH (08:28)
[2021-07-27] MEDS: HYDROCORTISONE 2.5% OINT 20GM TOP SCH ×2 (08:31→21:54)
[2021-07-27] MEDS: BETAMETHASONE DIPROPIONATE 0.05% LOTION 60ML TOP SCH ×2 (08:31→21:54)
[2021-07-27] MEDS ORDERED: CARVEDILOL 3.125 MG TABLET PO SCH (09:00)
[2021-07-27] MEDS ORDERED: FUROSEMIDE 40MG/4ML VIAL IVP SCH (14:00)
[2021-07-27] MEDS ORDERED: MAGNESIUM 2 G PREMIX 50 ML IV SCH (15:00)
[2021-07-27] MEDS: BACITRACIN 15GM TUBE TOP SCH ×2 (17:00→17:31)
[2021-07-27] MEDS: ATORVASTATIN CALCIUM 40MG TABLET PO SCH (20:55)
[2021-07-27] MEDS: CARVEDILOL 6.25 MG TABLET PO SCH (20:56)
[2021-07-28] VITALS (10 sets, daily range): BP systolic 100–162; BP diastolic 54–97
[2021-07-28] MEDS: IPRATROPIUM/ALBUTEROL 0.5-3(2.5)MG/3ML NEB HHN SCH ×2 (02:42→09:17)
[2021-07-28] MEDS: BLOOD SUGAR DIAGNOSTIC STRIP TEST SCH ×3 (06:15→17:08)
[2021-07-28] MEDS: NITROGLYCERIN OINT 1GM/INCH UDPKT TD SCH ×2 (06:59→14:23)
[2021-07-28] MEDS: INSULIN LISPRO (LOW DOSE) 100 UNITS/ML SUBCUT SCH ×2 (07:20→12:20)
[2021-07-28] MEDS: MIRTAZAPINE 15MG TABLET PO SCH (08:35)
[2021-07-28] MEDS: FAMOTIDINE 20MG TABLET PO SCH (08:35)
[2021-07-28] MEDS: CARVEDILOL 6.25 MG TABLET PO SCH (08:35)
[2021-07-28] MEDS: TAMSULOSIN HCL 0.4MG SR CAPSULE PO SCH (08:35)
[2021-07-28] MEDS: ASPIRIN 81MG TABLET PO SCH (08:35)
[2021-07-28] MEDS: CLOPIDOGREL 75MG TABLET PO SCH (08:35)
[2021-07-28] MEDS: DOCUSATE SODIUM 250MG CAPSULE PO SCH ×2 (08:35→17:09)
[2021-07-28] MEDS: HYDROCORTISONE 2.5% OINT 20GM TOP SCH (08:37)
[2021-07-28] MEDS: BETAMETHASONE DIPROPIONATE 0.05% LOTION 60ML TOP SCH (08:37)
[2021-07-28] MEDS: BACITRACIN 15GM TUBE TOP SCH ×2 (08:38→17:09)
[2021-07-28] MEDS ORDERED: FUROSEMIDE 40MG/4ML VIAL IVP SCH (10:45)
[2021-07-28] MEDS ORDERED: CLOP75TA15 PO (15:13)
[2021-07-28] MEDS ORDERED: COR6 PO (15:13)
[2021-07-28] MEDS ORDERED: DOCU250C14 PO (15:13)
[2021-07-28] MEDS ORDERED: ASPI-1160 PO (15:13)
[2021-07-28] MEDS ORDERED: HYDR453.4 TOP (15:13)
== END 2021-07-28 19:19 | disposition home health service (06) | DRG 233 ==
LOC: 7EST 22:27 → 3WST 07-22 15:02 → CVICU 07-24 13:33 → 3WST 07-26 22:54
PROVIDERS: ADMIT Internal Medicine; ATTEND Internal Medicine
PROC: 4A023N7 Measurement of Cardiac Sampling and Pressure, Left Heart, Percutaneous Approach (ICD-10-PCS; 2021-07-22)
PROC: B211YZZ Fluoroscopy of Multiple Coronary Arteries using Other Contrast (ICD-10-PCS; 2021-07-22)
PROC: 02100Z9 Bypass Coronary Artery, One Artery from Left Internal Mammary, Open Approach (ICD-10-PCS; principal; 2021-07-24)
PROC: 021209W Bypass Coronary Artery, Three Arteries from Aorta with Autologous Venous Tissue, Open Approach (ICD-10-PCS; 2021-07-24)
PROC: 06BQ4ZZ Excision of Left Saphenous Vein, Percutaneous Endoscopic Approach (ICD-10-PCS; 2021-07-24)
PROC: 4A12XSH Monitoring of Cardiac Vascular Perfusion using Indocyanine Green Dye, External Approach (ICD-10-PCS; 2021-07-24)
PROC: 03HY32Z Insertion of Monitoring Device into Upper Artery, Percutaneous Approach (ICD-10-PCS; 2021-07-24)
PROC: 4A133B1 Monitoring of Arterial Pressure, Peripheral, Percutaneous Approach (ICD-10-PCS; 2021-07-24)
PROC: 4A133J1 Monitoring of Arterial Pulse, Peripheral, Percutaneous Approach (ICD-10-PCS; 2021-07-24)
DX: I25.110 Atherosclerotic heart disease of native coronary artery with unstable angina pectoris (principal); J96.01 Acute respiratory failure with hypoxia; I50.33 Acute on chronic diastolic (congestive) heart failure; I21.4 Non-ST elevation (NSTEMI) myocardial infarction; J98.11 Atelectasis; E78.5 Hyperlipidemia, unspecified; E87.6 Hypokalemia; E88.09 Other disorders of plasma-protein metabolism, not elsewhere classified; F32.9 Major depressive disorder, single episode, unspecified; G89.4 Chronic pain syndrome; I45.10 Unspecified right bundle-branch block; K44.9 Diaphragmatic hernia without obstruction or gangrene; N40.0 Benign prostatic hyperplasia without lower urinary tract symptoms; R13.10 Dysphagia, unspecified; E11.65 Type 2 diabetes mellitus with hyperglycemia; D64.9 Anemia, unspecified; T65.6X1A Toxic effect of paints and dyes, not elsewhere classified, accidental (unintentional), initial encounter; L23.4 Allergic contact dermatitis due to dyes; T41.295A Adverse effect of other general anesthetics, initial encounter; Y92.230 Patient room in hospital as the place of occurrence of the external cause; R26.9 Unspecified abnormalities of gait and mobility; D72.829 Elevated white blood cell count, unspecified; I11.0 Hypertensive heart disease with heart failure; M47.812 Spondylosis without myelopathy or radiculopathy, cervical region; M48.02 Spinal stenosis, cervical region; R54 Age-related physical debility; Z20.822 Contact with and (suspected) exposure to COVID-19; M48.061 Spinal stenosis, lumbar region without neurogenic claudication; Y92.89 Other specified places as the place of occurrence of the external cause; Z80.42 Family history of malignant neoplasm of prostate; Z82.49 Family history of ischemic heart disease and other diseases of the circulatory system; Z87.891 Personal history of nicotine dependence; I25.2 Old myocardial infarction; Z91.040 Latex allergy status; Z79.899 Other long term (current) drug therapy; Z98.1 Arthrodesis status; Z83.49 Family history of other endocrine, nutritional and metabolic diseases
CPT/HCPCS: 36415; 36600; 71045; 71046; 74018; 80048; 80061; 81003; 82375; 82805; 82962; 83036; 83735; 84132; 84484; 85025; 85347; 86850; 86900; 86920; 87426; 92610; 93005; 93306; 93458; 93880; 94640; 97110; 97116; 97163; 97166; 97530; 97535; C1729; C1751; C1758; C1769; C1887; C1893; C9113; J0360; J0690; J1170; J1200; J1265; J1644; J1650; J1815; J1885; J1940; J2250; J2270; J2405; J2440; J2704; J2710; J2720; J2765; J3010; J3370; J3475; J3480; J3490; J7050; J7060; L3908; P9041; P9047; Q0163; Q9957; Q9967; A4315

== ENCOUNTER → 2021-09-25 | Outpatient (CLI) | payer BC, MEDICARE ==
[~2021-09-25] MED LIST changes: -AMLO5TAB88 PO; +ASPI-1160 PO; -CARI250T PO; +CLOP75TA15 PO; +COR6 PO; +DOCU250C14 PO; -HYDR-4005 PO; +HYDR-4346 PO; -HYDR-4348 MT; +HYDR453.4 TOP; +LORA-249 PO; -LORA-250 PO; +SIMV-43 PO; -SIMV-46 PO; +TAMS-11 MT
[2021-09-25 10:08] LABS: BASOPHILS % 0.6 % (0.0-2.0); HEMATOCRIT. 40.4 % (42.0-52.0); HEMOGLOBIN. 13.3 g/dL (14.0-18.0); LYMPHOCYTES % 28.6 % (20.0-50.0); MEAN CORPUSCULAR HEMOGLOBIN 29.6 pg (28.0-32.0); MEAN CORPUSCULAR VOLUME 89.6 fL (80.0-94.0); MEAN PLATELET VOLUME 8.6 fl (7.4-10.4); MONOCYTES % 6.5 % (2.0-8.0); NEUTROPHILS % 58.3 % (40.0-76.0); PLATELET 267 x1000/uL (130-400); RED CELL DISTRIBUTION WIDTH 13.1 % (11.6-14.6)
[2021-09-25 10:11] LABS: CLARITY URINE CLEAR (CLEAR); COLOR URINE YELLOW (YELLOW); KETONES URINE NEGATIVE (NEGATIVE); LEUKOCYTE ESTERASE URINE NEGATIVE (NEGATIVE); NITRITE URINE NEGATIVE (NEGATIVE); OCCULT BLOOD URINE NEGATIVE (NEGATIVE); PH URINE 6.5 (4.5-8.0); PROTEIN URINE NEGATIVE (NEGATIVE); SPECIFIC GRAVITY URINE 1.013 (1.005-1.030); UROBILINOGEN URINE 0.2 E.U./dL (0.2-1.0)
[2021-09-25 10:21] LABS: CHLORIDE 110 mEq/L (98-107)
[2021-09-25 10:27] LABS: LDL CHOLESTEROL 63 mg/dL (5-100)
[2021-09-25 10:30] LABS: HDL CHOLESTEROL 49 mg/dL (40-59)
== END | disposition home or self-care (01) ==
LOC: LAB 09:34
PROVIDERS: ATTEND Internal Medicine Endocrinology, Diabetes & Metabolism
DX: I10 Essential (primary) hypertension (principal); N40.0 Benign prostatic hyperplasia without lower urinary tract symptoms; R73.9 Hyperglycemia, unspecified; E78.00 Pure hypercholesterolemia, unspecified; E55.9 Vitamin D deficiency, unspecified
CPT/HCPCS: 36415; 80053; 80061; 81003; 82306; 83036; 83735; 84153; 84443; 84550; 85025; G0103

== ENCOUNTER → 2021-10-30 | Outpatient (CLI) | payer BC, MEDICARE | END | disposition home or self-care (01) | LOC: MRI 10:41 | PROVIDERS: ATTEND Neurological Surgery | DX: M51.26 Other intervertebral disc displacement, lumbar region (principal); M51.36 Other intervertebral disc degeneration, lumbar region; M48.061 Spinal stenosis, lumbar region without neurogenic claudication; M51.35 Other intervertebral disc degeneration, thoracolumbar region | CPT/HCPCS: 72148 ==

== ENCOUNTER 2022-03-22 15:27 | Emergency (ER) | payer BC, MEDICARE ==
[~2022-03-22] VITALS: Ht 167.6 cm; Wt 77.0 kg
[~2022-03-22 15:27] MED LIST changes: +AMLO2.5T45 PO; +ATOR40TA70 MT; +CARV3.1242 MT; -COR6 PO; -SIMV-43 PO
[2022-03-22] MEDS ORDERED: ACETAMINOPHEN 325MG TABLET PO ONE (16:15)
[2022-03-22] MEDS ORDERED: ONDANSETRON 4MG ODT PO NR (16:45)
[2022-03-22] MEDS ORDERED: MAGNESIUM/ALUMINUM HYDROXIDE/SIMETHICONE 30ML UDC PO NR (16:45)
[2022-03-22 17:09] LABS: BASOPHILS % 0.4 % (0.0-2.0); EOSINOPHILS % 0.7 % (0.0-5.0); HEMATOCRIT. 43.3 % (42.0-52.0); LYMPHOCYTES % 15.8 % (20.0-50.0); MEAN CORPUSCULAR HEMOGLOBIN 31.1 pg (28.0-32.0); MEAN PLATELET VOLUME 8.7 fl (7.4-10.4); MONOCYTES % 8.5 % (2.0-8.0); NEUTROPHILS % 74.6 % (40.0-76.0); PLATELET 185 x1000/uL (130-400); RED BLOOD CELL COUNT 4.82 mill/uL (4.7-6.1); RED CELL DISTRIBUTION WIDTH 13.8 % (11.6-14.6)
[2022-03-22 17:17] LABS: CHLORIDE 105 mEq/L (98-107)
[2022-03-22 18:30] VITALS: BP 133/80
[2022-03-22] MEDS ORDERED: ACET-2708 MT ×2 (18:32)
[2022-03-22] MEDS ORDERED: ONDA4TAB50 MT (18:32)
[2022-03-22] MEDS ORDERED: T3 PO (18:39)
== END 2022-03-22 21:09 | disposition home or self-care (01) ==
LOC: ER 15:27
DX: B34.9 Viral infection, unspecified (principal); R05.9 Cough, unspecified; M79.18 Myalgia, other site; R19.7 Diarrhea, unspecified; Z20.822 Contact with and (suspected) exposure to COVID-19; F41.9 Anxiety disorder, unspecified; F32.9 Major depressive disorder, single episode, unspecified; E78.00 Pure hypercholesterolemia, unspecified; I10 Essential (primary) hypertension; Z90.49 Acquired absence of other specified parts of digestive tract
CPT/HCPCS: 36415; 71045; 80048; 85025; 87426; 93005; 99284; C9803; Q0162

== ENCOUNTER 2022-05-26 12:37 | Inpatient (IN) | payer BC, MEDICARE ==
[~2022-05-26] VITALS: Ht 167.6 cm; Wt 78.2 kg
[~2022-05-26 12:37] MED LIST changes: -HYDR-4005 MT
[2022-05-26 14:56] LABS: BASOPHILS % 0.4 % (0.0-2.0); CHLORIDE 105 mEq/L (98-107); EOSINOPHILS % 2.4 % (0.0-5.0); HEMOGLOBIN. 15.6 g/dL (14.0-18.0); LYMPHOCYTES % 28.2 % (20.0-50.0); MEAN CORPUSCULAR VOLUME 91.6 fL (80.0-94.0); PLATELET 206 x1000/uL (130-400); RED BLOOD CELL COUNT 5.02 mill/uL (4.7-6.1); RED CELL DISTRIBUTION WIDTH 13.4 % (11.6-14.6)
[2022-05-26 15:07] LABS: ETHANOL BLOOD < 10 mg/dL
[2022-05-26] MEDS ORDERED: SODIUM CHLORIDE 0.9% 1,000 ML IV ONE (16:45)
[2022-05-26 18:51] LABS: CLARITY URINE CLEAR (CLEAR); COLOR URINE YELLOW (YELLOW); KETONES URINE TRACE (NEGATIVE); LEUKOCYTE ESTERASE URINE NEGATIVE (NEGATIVE); NITRITE URINE NEGATIVE (NEGATIVE); OCCULT BLOOD URINE NEGATIVE (NEGATIVE); PROTEIN URINE NEGATIVE (NEGATIVE); SPECIFIC GRAVITY URINE 1.032 (1.005-1.030); UROBILINOGEN URINE 0.2 E.U./dL (0.2-1.0)
[2022-05-26 19:01] LABS: *AMPHETAMINES SCREEN URINE NEGATIVE (NEGATIVE); *BARBITURATES SCREEN URINE NEGATIVE (NEGATIVE); *BENZODIAZEPINES SCREEN URINE NEGATIVE (NEGATIVE); *COCAINE SCREEN URINE NEGATIVE (NEGATIVE); CANNABINOID URINE SCREEN PRESUMTIVE POSITIVE (NEGATIVE); METHADONE URINE SCREEN NEGATIVE (NEGATIVE); OPIATES URINE SCREEN PRESUMTIVE POSITIVE (NEGATIVE); PHENCYCLIDINE URINE SCREEN NEGATIVE (NEGATIVE)
[2022-05-26] MEDS ORDERED: AMLO2.5T45 PO (21:27)
[2022-05-26 22:09] VITALS: BP 157/83
[2022-05-26] MEDS ORDERED: HYDR-4005 MT (22:19)
[2022-05-27] VITALS (7 sets, daily range): BP systolic 110–157; BP diastolic 62–93
[2022-05-27] MEDS ORDERED: HYDROCODONE/ACETAMINOPHEN 5/325MG TABLET PO PRN (02:00)
[2022-05-27] MEDS ORDERED: LORAZEPAM 0.5MG TABLET PO PRN (02:00)
[2022-05-27] MEDS: OMEPRAZOLE 20MG CAPSULE EXTENDED RELEASE PO SCH ×2 (06:42→10:57)
[2022-05-27] MEDS ORDERED: TAMSULOSIN HCL 0.4MG SR CAPSULE PO SCH (09:00)
[2022-05-27] MEDS ORDERED: AMLODIPINE 5MG TABLET PO SCH (09:00)
[2022-05-27] MEDS ORDERED: ASPIRIN 81MG TABLET PO SCH (09:00)
[2022-05-27] MEDS ORDERED: CLOPIDOGREL 75MG TABLET PO SCH (09:00)
[2022-05-27] MEDS ORDERED: AMLO2.5T45 PO (19:12)
[2022-05-27] MEDS ORDERED: ATORVASTATIN CALCIUM 40MG TABLET PO SCH (21:00)
[2022-05-27] MEDS ORDERED: MIRTAZAPINE 15MG TABLET PO SCH (21:00)
== END 2022-05-27 20:35 | disposition home or self-care (01) | DRG 69 ==
LOC: ER 12:37 → 8WST 17:42 → EDBEDREQ 17:47 → EDBEDREQSVC 17:47 → EDBEDREQTM 17:47 → ENRESERV 21:06
PROVIDERS: ADMIT Internal Medicine Endocrinology, Diabetes & Metabolism; ATTEND Internal Medicine Endocrinology, Diabetes & Metabolism
DX: G45.9 Transient cerebral ischemic attack, unspecified (principal); E87.2 Acidosis; I50.32 Chronic diastolic (congestive) heart failure; E11.65 Type 2 diabetes mellitus with hyperglycemia; E78.2 Mixed hyperlipidemia; F32.9 Major depressive disorder, single episode, unspecified; G89.4 Chronic pain syndrome; H54.61 Unqualified visual loss, right eye, normal vision left eye; I11.0 Hypertensive heart disease with heart failure; I25.10 Atherosclerotic heart disease of native coronary artery without angina pectoris; I45.10 Unspecified right bundle-branch block; K44.9 Diaphragmatic hernia without obstruction or gangrene; M48.02 Spinal stenosis, cervical region; M48.061 Spinal stenosis, lumbar region without neurogenic claudication; M54.16 Radiculopathy, lumbar region; F41.9 Anxiety disorder, unspecified; M24.28 Disorder of ligament, vertebrae; M47.812 Spondylosis without myelopathy or radiculopathy, cervical region; R00.1 Bradycardia, unspecified; I95.9 Hypotension, unspecified; F15.90 Other stimulant use, unspecified, uncomplicated; F12.90 Cannabis use, unspecified, uncomplicated; G31.84 Mild cognitive impairment of uncertain or unknown etiology; Z90.49 Acquired absence of other specified parts of digestive tract; Z86.16 Personal history of COVID-19; Z82.49 Family history of ischemic heart disease and other diseases of the circulatory system; Z80.42 Family history of malignant neoplasm of prostate; Z95.1 Presence of aortocoronary bypass graft; Z63.4 Disappearance and death of family member; Z91.040 Latex allergy status; Z87.891 Personal history of nicotine dependence
CPT/HCPCS: 36415; 70496; 70498; 70551; 71045; 80053; 80305; 80320; 81003; 83605; 84484; 85025; 93005; 93306; 93970; 99291; J7030; G0480

== ENCOUNTER → 2022-05-26 | Outpatient (CLI) | payer BC, MEDICARE ==
[~2022-05-26] MED LIST changes: +HYDR-4005 MT; +ONDA4TAB50 MT; +T3 PO
[2022-05-26 11:15] LABS: BASOPHILS % 0.3 % (0.0-2.0); EOSINOPHILS % 3.4 % (0.0-5.0); HEMATOCRIT. 44.2 % (42.0-52.0); HEMOGLOBIN. 15.1 g/dL (14.0-18.0); LYMPHOCYTES % 29.1 % (20.0-50.0); MEAN CORPUSCULAR VOLUME 90.6 fL (80.0-94.0); MEAN PLATELET VOLUME 8.7 fl (7.4-10.4); MONOCYTES % 5.2 % (2.0-8.0); PLATELET 201 x1000/uL (130-400); RED BLOOD CELL COUNT 4.88 mill/uL (4.7-6.1); RED CELL DISTRIBUTION WIDTH 13.5 % (11.6-14.6)
[2022-05-26 11:18] LABS: CLARITY URINE CLEAR (CLEAR); COLOR URINE YELLOW (YELLOW); KETONES URINE NEGATIVE (NEGATIVE); LEUKOCYTE ESTERASE URINE NEGATIVE (NEGATIVE); NITRITE URINE NEGATIVE (NEGATIVE); OCCULT BLOOD URINE NEGATIVE (NEGATIVE); PROTEIN URINE NEGATIVE (NEGATIVE); SPECIFIC GRAVITY URINE 1.015 (1.005-1.030); UROBILINOGEN URINE 0.2 E.U./dL (0.2-1.0)
[2022-05-26 11:25] LABS: CHLORIDE 108 mEq/L (98-107)
[2022-05-26 11:40] LABS: HDL CHOLESTEROL 57 mg/dL (40-59); LDL CHOLESTEROL 60 mg/dL (5-100)
== END | disposition home or self-care (01) ==
LOC: LAB 10:30
PROVIDERS: ATTEND Internal Medicine Endocrinology, Diabetes & Metabolism
DX: I10 Essential (primary) hypertension (principal); E55.9 Vitamin D deficiency, unspecified; E78.5 Hyperlipidemia, unspecified; R73.9 Hyperglycemia, unspecified
CPT/HCPCS: 36415; 80053; 80061; 81003; 82306; 83036; 84443; 84550; 85025

== ENCOUNTER → 2022-08-12 | Outpatient (CLI) | payer BC ==
[~2022-08-12] MED LIST changes: -CARV3.1242 MT; -CLOP75TA15 PO; -DOCU250C14 PO; +HYDR-4005 MT; -HYDR-4346 PO; -HYDR453.4 TOP; -ONDA4TAB50 MT; +REGADENOSON 0.4 MG/5 ML IV ONE; -T3 PO
== END | disposition home or self-care (01) ==
LOC: NM 08:12
PROVIDERS: ATTEND Internal Medicine
DX: I20.0 Unstable angina (principal); R07.89 Other chest pain; R06.02 Shortness of breath
CPT/HCPCS: 78452; A9500; J2785

== ENCOUNTER → 2022-11-04 | Outpatient (CLI) | payer BC, MEDICARE ==
[~2022-11-04] MED LIST changes: -REGADENOSON 0.4 MG/5 ML IV ONE
[2022-11-04 09:26] LABS: BASOPHILS % 0.4 % (0.0-2.0); EOSINOPHILS % 3.4 % (0.0-5.0); HEMATOCRIT. 43.5 % (42.0-52.0); LYMPHOCYTES % 27.5 % (20.0-50.0); MEAN CORPUSCULAR HEMOGLOBIN 31.5 pg (28.0-32.0); MEAN CORPUSCULAR VOLUME 91.4 fL (80.0-94.0); MEAN PLATELET VOLUME 8.5 fl (7.4-10.4); MONOCYTES % 5.7 % (2.0-8.0); PLATELET 221 x1000/uL (130-400); RED BLOOD CELL COUNT 4.76 mill/uL (4.7-6.1); RED CELL DISTRIBUTION WIDTH 13.9 % (11.6-14.6)
[2022-11-04 09:35] LABS: CLARITY URINE CLEAR (CLEAR); COLOR URINE YELLOW (YELLOW); KETONES URINE TRACE (NEGATIVE); LEUKOCYTE ESTERASE URINE NEGATIVE (NEGATIVE); NITRITE URINE NEGATIVE (NEGATIVE); OCCULT BLOOD URINE NEGATIVE (NEGATIVE); PH URINE 6.5 (4.5-8.0); PROTEIN URINE NEGATIVE (NEGATIVE); SPECIFIC GRAVITY URINE 1.017 (1.005-1.030); UROBILINOGEN URINE 0.2 E.U./dL (0.2-1.0)
[2022-11-04 09:53] LABS: CHLORIDE 106 mEq/L (98-107)
[2022-11-04 10:52] LABS: AMYLASE 88 IU/L (25-115); HDL CHOLESTEROL 57 mg/dL (40-59); LDL CHOLESTEROL 71 mg/dL (5-100); T4 FREE 1.03 ng/dL (0.76-1.46)
== END | disposition home or self-care (01) ==
LOC: LAB 08:57
PROVIDERS: ATTEND Internal Medicine Endocrinology, Diabetes & Metabolism
DX: R10.9 Unspecified abdominal pain (principal); E78.5 Hyperlipidemia, unspecified; R73.9 Hyperglycemia, unspecified; E55.9 Vitamin D deficiency, unspecified; Z98.890 Other specified postprocedural states
CPT/HCPCS: 36415; 74021; 80053; 80061; 81003; 82150; 82248; 83036; 84153; 84439; 84443; 85025; G0103

== ENCOUNTER → 2022-11-12 | Outpatient (CLI) | payer BC, MEDICARE ==
[~2022-11-12] MED LIST changes: +IOHEXOL-300 100 ML BOTTLE ONE
== END | disposition home or self-care (01) ==
LOC: CT 08:34
PROVIDERS: ATTEND Internal Medicine Endocrinology, Diabetes & Metabolism
DX: K76.0 Fatty (change of) liver, not elsewhere classified (principal); N28.1 Cyst of kidney, acquired; M47.817 Spondylosis without myelopathy or radiculopathy, lumbosacral region; Z95.1 Presence of aortocoronary bypass graft
CPT/HCPCS: 74178; Q9967

== ENCOUNTER → 2023-07-07 | Outpatient (CLI) | payer BC, MEDICARE ==
[~2023-07-07] MED LIST changes: -IOHEXOL-300 100 ML BOTTLE ONE
== END | disposition home or self-care (01) ==
LOC: MRI 09:29
PROVIDERS: ATTEND Neurological Surgery
DX: M51.27 Other intervertebral disc displacement, lumbosacral region (principal); M47.816 Spondylosis without myelopathy or radiculopathy, lumbar region; M48.061 Spinal stenosis, lumbar region without neurogenic claudication; M48.02 Spinal stenosis, cervical region; M43.22 Fusion of spine, cervical region; M54.2 Cervicalgia
CPT/HCPCS: 72141; 72148

== ENCOUNTER → 2023-08-03 | Outpatient (CLI) | payer BC, MEDICARE ==
[2023-08-03 10:52] LABS: CLARITY URINE CLEAR (CLEAR); COLOR URINE YELLOW (YELLOW); GLUCOSE URINE NEGATIVE (NEGATIVE); KETONES URINE NEGATIVE (NEGATIVE); LEUKOCYTE ESTERASE URINE NEGATIVE (NEGATIVE); NITRITE URINE NEGATIVE (NEGATIVE); OCCULT BLOOD URINE NEGATIVE (NEGATIVE); PH URINE 6.5 (4.5-8.0); PROTEIN URINE NEGATIVE (NEGATIVE); SPECIFIC GRAVITY URINE 1.018 (1.005-1.030); UROBILINOGEN URINE 0.2 E.U./dL (0.2-1.0)
[2023-08-03 10:58] LABS: BASOPHILS % 0.4 % (0.0-2.0); EOSINOPHILS % 6.6 % (0.0-5.0); HEMOGLOBIN. 14.3 g/dL (14.0-18.0); LYMPHOCYTES % 29.6 % (20.0-50.0); MEAN CORPUSCULAR HEMOGLOBIN 30.4 pg (28.0-32.0); MEAN CORPUSCULAR VOLUME 89.3 fL (80.0-94.0); MEAN PLATELET VOLUME 8.7 fl (7.4-10.4); MONOCYTES % 5.3 % (2.0-8.0); NEUTROPHILS % 58.1 % (40.0-76.0); PLATELET 182 x1000/uL (130-400); RED BLOOD CELL COUNT 4.71 mill/uL (4.7-6.1); RED CELL DISTRIBUTION WIDTH 13.5 % (11.6-14.6); WHITE BLOOD COUNT 8.8 x1000/uL (4.5-11.0)
[2023-08-03 11:08] LABS: PARTIAL THROMBOPLASTIN TIME 26.4 sec (23.4-31.0); PROTHROMBIN TIME 10.5 sec (9.6-11.0)
[2023-08-03 11:12] LABS: CHLORIDE 109 mEq/L (98-107); INDEX HEMOLYSI 1 (1-3); INDEX ICTERIC 1 (1-4); INDEX LIPEMIC 1 (1-3); POTASSIUM 4.2 mEq/L (3.5-5.1); SODIUM 141 mEq/L (136-145)
[2023-08-03 11:30] LABS: ALANINE AMINOTRANSFERASE 40 IU/L (13-61); ALBUMIN 3.8 g/dL (3.4-5.0); ASPARTATE AMINOTRANSFERASE 36 IU/L (15-37); BILIRUBIN TOTAL 0.6 mg/dL (0.1-1.0); CARBON DIOXIDE 33 mEq/L (21-32); CHOLESTEROL 113 mg/dL (<200); GLUCOSE 111 mg/dL (70-105); HDL CHOLESTEROL 56 mg/dL (40-59); LDL CHOLESTEROL 47 mg/dL (5-100); PROTEIN TOTAL 7.7 g/dL (6.0-8.3); T4 FREE 0.86 ng/dL (0.76-1.46); TRIGLYCERIDE 121 mg/dL (0-150); UREA NITROGEN BLOOD 13 mg/dL (7-21)
== END | disposition home or self-care (01) ==
LOC: RAD 09:31
PROVIDERS: ATTEND Internal Medicine Endocrinology, Diabetes & Metabolism
DX: Z01.812 Encounter for preprocedural laboratory examination (principal); R73.9 Hyperglycemia, unspecified; E78.5 Hyperlipidemia, unspecified; I11.9 Hypertensive heart disease without heart failure; E55.9 Vitamin D deficiency, unspecified; M25.561 Pain in right knee
CPT/HCPCS: 36415; 71046; 73562; 80053; 80061; 81003; 83036; 84439; 84443; 85025

== ENCOUNTER → 2023-08-12 | Outpatient (CLI) | payer BC, MEDICARE ==
[~2023-08-12] MED LIST changes: +REGADENOSON 0.4 MG/5 ML IV ONE
== END | disposition home or self-care (01) ==
LOC: NM 09:27
PROVIDERS: ATTEND Internal Medicine
DX: Z01.818 Encounter for other preprocedural examination (principal); I25.10 Atherosclerotic heart disease of native coronary artery without angina pectoris; Z95.1 Presence of aortocoronary bypass graft
CPT/HCPCS: 78452; 93017; J2785; A9500

== ENCOUNTER 2023-08-18 05:09 | Inpatient (IN) | payer BC, MEDICARE ==
[~2023-08-18] VITALS: Ht 167.6 cm; Wt 85.7 kg
[~2023-08-18 05:09] MED LIST changes: +CLOP-31 PO; -REGADENOSON 0.4 MG/5 ML IV ONE
[2023-08-18 05:54] LABS: CARBON DIOXIDE 28 mEq/L (21-32); CHLORIDE 108 mEq/L (98-107); GLUCOSE 92 mg/dL (70-105); PARTIAL THROMBOPLASTIN TIME 26.4 sec (23.4-31.0); POTASSIUM 4.1 mEq/L (3.5-5.1); PROTHROMBIN TIME 10.6 sec (9.6-11.0); SODIUM 143 mEq/L (136-145); UREA NITROGEN BLOOD 11 mg/dL (9-23)
[2023-08-18] MEDS ORDERED: ROSU20TA2 PO (05:58)
[2023-08-18] MEDS ORDERED: AMLO5TAB88 PO (05:59)
[2023-08-18] MEDS ORDERED: SODIUM CHLORIDE 0.9% 1,000 ML IV SCH (06:00)
[2023-08-18] MEDS ORDERED: LIDOCAINE HCL 1%/EPI 1:200,000 30 ML VIAL ONE (06:10)
[2023-08-18] MEDS ORDERED: GENTAMICIN SULF 40MG/ML 2ML VIAL ONE (06:10)
[2023-08-18] MEDS ORDERED: THROMBIN (BOVINE) 5000 UNITS/VIAL TOP ONE (06:10)
[2023-08-18] MEDS ORDERED: LIDOCAINE HCL 1% 10 MG/ML 10ML VIAL ONE (07:17)
[2023-08-18] MEDS ORDERED: SUCCINYLCHOLINE CHLORIDE 200MG/10ML IV ONE (07:21)
[2023-08-18] MEDS ORDERED: DEXAMETHASONE 4MG/ML 1ML VIAL ONE (07:21)
[2023-08-18] MEDS ORDERED: ROCURONIUM BROMIDE 10MG/ML VIAL 5ML IV ONE (07:22)
[2023-08-18] MEDS ORDERED: MIDAZOLAM HCL 2 MG/2 ML VIAL ONE ×2 (07:22→09:37)
[2023-08-18] MEDS ORDERED: PROPOFOL 200MG/20ML VIAL IV ONE (07:22)
[2023-08-18] MEDS ORDERED: FENTANYL CITRATE/PF 50MCG/ML 5ML VIAL ONE (07:23)
[2023-08-18] MEDS ORDERED: HYDRALAZINE 20MG/ML VIAL IV PRN (07:30)
[2023-08-18] MEDS ORDERED: DEXT 5%/LACTATED RINGERS 1,000 ML IV SCH (07:30)
[2023-08-18] MEDS ORDERED: HYDROMORPHONE HCL/PF 2MG/ML CPJ ONE (08:32)
[2023-08-18] MEDS ORDERED: LABETALOL 5MG/ML SYR 20 MG/4 ML SYRINGE IV PRN (09:00)
[2023-08-18] MEDS ORDERED: ONDANSETRON HCL 4MG/2ML INJ IV PRN ×2 (09:00→21:15)
[2023-08-18] MEDS ORDERED: NEOSTIGMINE METHYLSULFATE 1MG/ML 10 ML VIAL ONE (09:13)
[2023-08-18] MEDS ORDERED: GLYCOPYRROLATE 0.2 MG/ML 2ML VIAL ONE ×2 (09:14)
[2023-08-18] MEDS ORDERED: FENTANYL CITRATE/PF 50MCG/ML 2ML VIAL ONE (09:37)
[2023-08-18] MEDS: MEPERIDINE HCL/PF 25MG/ML CPJ IV PRN ×2 (10:19→10:37)
[2023-08-18] MEDS: HYDROMORPHONE HCL/PF 2MG/ML CPJ IV PRN ×4 (12:30→15:16)
[2023-08-18] MEDS ORDERED: CEFAZOLIN SODIUM 1000MG/VIAL IV SCH (14:00)
[2023-08-18] MEDS ORDERED: ACETAMINOPHEN 325MG TABLET PO PRN ×2 (14:15)
[2023-08-18] MEDS ORDERED: MAGNESIUM/ALUMINUM HYDROXIDE/SIMETHICONE 30ML UDC PO PRN (14:15)
[2023-08-18] MEDS ORDERED: ZOLPIDEM TARTRATE 5MG TABLET PO PRN (14:15)
[2023-08-18 16:00] VITALS: BP_SYST 126; BP_DIAS 73; BP_DIAS 78; PULSE 60; RESP 16; TEMP 98.3
[2023-08-18] MEDS: LORAZEPAM 0.5MG TABLET PO PRN (17:57)
[2023-08-18] MEDS: MORPHINE SULFATE 4 MG/ML CPJ (NOT FOR IM USE) IV PRN ×2 (17:57→21:56)
[2023-08-18 20:00] VITALS: BP 139/80; PULSE 66; RESP 17; TEMP 99.7
[2023-08-18] MEDS: DEXT 5%/LACTATED RINGERS 1,000 ML IV SCH (21:15)
[2023-08-18] MEDS: CEFAZOLIN 1000MG PREMIX 50 ML IV SCH (21:54)
[2023-08-18] MEDS ORDERED: NITROGLYCERIN 0.4MG TABLET SL SL PRN (23:45)
[2023-08-18] MEDS ORDERED: LORAZEPAM 0.5MG TABLET PO PRN (23:45)
[2023-08-19] VITALS: BP 121/67; PULSE 61; RESP 15; TEMP 98.9
[2023-08-19] MEDS: OMEPRAZOLE 20MG CAPSULE EXTENDED RELEASE PO SCH ×3 (00:13→16:50)
[2023-08-19] MEDS: MIRTAZAPINE 15MG TABLET PO SCH ×2 (00:13→20:37)
[2023-08-19 04:00] VITALS: BP 128/67; PULSE 60; RESP 16; TEMP 99.8
[2023-08-19] MEDS: CEFAZOLIN 1000MG PREMIX 50 ML IV SCH ×2 (06:08→13:47)
[2023-08-19] MEDS: MORPHINE SULFATE 4 MG/ML CPJ (NOT FOR IM USE) IV PRN ×5 (06:11→20:39)
[2023-08-19] MEDS: DEXT 5%/LACTATED RINGERS 1,000 ML IV SCH ×2 (06:16→16:51)
[2023-08-19 07:08] LABS: BASOPHILS % 0.3 % (0.0-2.0); EOSINOPHILS % 4.6 % (0.0-5.0); HEMATOCRIT. 38.4 % (42.0-52.0); HEMOGLOBIN. 13.4 g/dL (14.0-18.0); LYMPHOCYTES % 16.1 % (20.0-50.0); MEAN CORPUSCULAR HEMOGLOBIN 31.1 pg (28.0-32.0); MEAN CORPUSCULAR HGB CONC 34.8 g/dL (31.0-37.0); MEAN CORPUSCULAR VOLUME 89.2 fL (80.0-94.0); MEAN PLATELET VOLUME 9.1 fl (7.4-10.4); MONOCYTES % 6.7 % (2.0-8.0); NEUTROPHILS % 72.3 % (40.0-76.0); PLATELET 171 x1000/uL (130-400); RED CELL DISTRIBUTION WIDTH 13.3 % (11.6-14.6); WHITE BLOOD COUNT 10.2 x1000/uL (4.5-11.0)
[2023-08-19 08:00] VITALS: BP 128/67; PULSE 64; RESP 21; TEMP 99.8
[2023-08-19 08:08] LABS: CALCIUM 8.4 mg/dL (8.7-10.4); CARBON DIOXIDE 26 mEq/L (21-32); CHLORIDE 107 mEq/L (98-107); CREATININE 0.8 mg/dL (0.6-1.3); GLUCOSE 109 mg/dL (70-105); POTASSIUM 3.3 mEq/L (3.5-5.1); SODIUM 141 mEq/L (136-145)
[2023-08-19] MEDS: TAMSULOSIN HCL 0.4MG SR CAPSULE PO SCH (08:49)
[2023-08-19] MEDS: AMLODIPINE 5MG TABLET PO SCH (08:49)
[2023-08-19 08:57] LABS: UREA NITROGEN BLOOD < 5 mg/dL (9-23)
[2023-08-19] MEDS ORDERED: POTASSIUM CHLORIDE 20MEQ/PACKET PO NR (11:45)
[2023-08-19 12:00] VITALS: BP 128/67; PULSE 70; RESP 21; TEMP 98.3
[2023-08-19] MEDS ORDERED: NALOXONE HCL 0.4MG/ML VIAL IV PRN (13:30)
[2023-08-19 16:00] VITALS: PULSE 77; RESP 18; TEMP 98.6
[2023-08-19 20:00] VITALS: BP 148/82; PULSE 77; RESP 22; TEMP 99
[2023-08-19] MEDS: LORAZEPAM 0.5MG TABLET PO PRN (20:38)
[2023-08-19] MEDS ORDERED: ATORVASTATIN CALCIUM 20MG TABLET PO SCH (21:00)
[2023-08-20] VITALS: BP 133/78; PULSE 76; RESP 20
[2023-08-20] MEDS: DEXT 5%/LACTATED RINGERS 1,000 ML IV SCH ×2 (02:22→13:03)
[2023-08-20] MEDS: MORPHINE SULFATE 4 MG/ML CPJ (NOT FOR IM USE) IV PRN ×2 (02:28→09:54)
[2023-08-20 04:00] VITALS: BP 135/77; PULSE 75; RESP 20; TEMP 99.2
[2023-08-20 04:08] VITALS: BP 136/79; PULSE 76; RESP 13; TEMP 97.4
[2023-08-20] MEDS: OMEPRAZOLE 20MG CAPSULE EXTENDED RELEASE PO SCH (06:40)
[2023-08-20 08:00] VITALS: BP 130/80; PULSE 77; RESP 12; TEMP 98.2
[2023-08-20] MEDS: AMLODIPINE 5MG TABLET PO SCH (08:38)
[2023-08-20] MEDS: TAMSULOSIN HCL 0.4MG SR CAPSULE PO SCH (08:39)
[2023-08-20 12:00] VITALS: BP 144/85; PULSE 78; RESP 18; TEMP 95
[2023-08-20 12:45] VITALS: BP 144/85; PULSE 97; TEMP 97.7
== END 2023-08-20 15:15 | disposition home or self-care (01) | DRG 517 ==
LOC: OR 05:09 → 3WST 17:02
PROVIDERS: ADMIT Neurological Surgery; ATTEND Neurological Surgery
PROC: 01NB0ZZ Release Lumbar Nerve, Open Approach (ICD-10-PCS; principal; 2023-08-19)
PROC: 4A11X4G Monitoring of Peripheral Nervous Electrical Activity, Intraoperative, External Approach (ICD-10-PCS; 2023-08-19)
DX: M71.38 Other bursal cyst, other site (principal); E78.5 Hyperlipidemia, unspecified; F32.9 Major depressive disorder, single episode, unspecified; F41.9 Anxiety disorder, unspecified; G89.4 Chronic pain syndrome; I25.10 Atherosclerotic heart disease of native coronary artery without angina pectoris; I10 Essential (primary) hypertension; K21.9 Gastro-esophageal reflux disease without esophagitis; R73.9 Hyperglycemia, unspecified; M48.061 Spinal stenosis, lumbar region without neurogenic claudication; Z95.1 Presence of aortocoronary bypass graft; Z80.42 Family history of malignant neoplasm of prostate; Z82.49 Family history of ischemic heart disease and other diseases of the circulatory system; Z87.891 Personal history of nicotine dependence
CPT/HCPCS: 36415; 36573; 80048; 85025; 86850; 86900; 88304; 88311; 93970; 95863; 95925; 95926; 95928; 95929; 97116; 97162; C1725; J0330; J0690; J1100; J1170; J1580; J2175; J2250; J2270; J2704; J2710; J3010; J3490; J7121

== ENCOUNTER → 2023-11-16 | Outpatient (CLI) | payer BC, MEDICARE ==
[~2023-11-16] MED LIST changes: -AMLO2.5T45 PO; +AMLO5TAB88 PO; -ATOR40TA70 MT; +ROSU20TA2 PO
[2023-11-16 14:08] LABS: BASOPHILS % 0.3 % (0.0-2.0); EOSINOPHILS % 0.5 % (0.0-5.0); HEMATOCRIT. 40.6 % (42.0-52.0); HEMOGLOBIN. 13.6 g/dL (14.0-18.0); LYMPHOCYTES % 20.2 % (20.0-50.0); MEAN CORPUSCULAR HEMOGLOBIN 30.5 pg (28.0-32.0); MEAN CORPUSCULAR HGB CONC 33.5 g/dL (31.0-37.0); MEAN PLATELET VOLUME 8.4 fl (7.4-10.4); MONOCYTES % 4.3 % (2.0-8.0); NEUTROPHILS % 74.7 % (40.0-76.0); PLATELET 367 x1000/uL (130-400); RED BLOOD CELL COUNT 4.46 mill/uL (4.7-6.1); RED CELL DISTRIBUTION WIDTH 14.1 % (11.6-14.6); WHITE BLOOD COUNT 10.5 x1000/uL (4.5-11.0)
[2023-11-16 14:36] LABS: ALANINE AMINOTRANSFERASE 25 IU/L (10-49); ALBUMIN 4.6 g/dL (3.2-4.8); ASPARTATE AMINOTRANSFERASE 29 IU/L (<34); BILIRUBIN DIRECT 0.2 mg/dL (<=3.0); BILIRUBIN TOTAL 0.4 mg/dL (0.1-1.0); CALCIUM 9.1 mg/dL (8.7-10.4); CARBON DIOXIDE 27 mEq/L (21-32); CHLORIDE 105 mEq/L (98-107); CHOLESTEROL 113 mg/dL (<200); CREATININE 0.8 mg/dL (0.6-1.3); GLUCOSE 107 mg/dL (70-105); HDL CHOLESTEROL 42 mg/dL (>55); LDL CHOLESTEROL 55 mg/dL (5-100); POTASSIUM 4.3 mEq/L (3.5-5.1); PROTEIN TOTAL 8.2 g/dL (6.0-8.3); SODIUM 139 mEq/L (136-145); T4 FREE 1.07 ng/dL (0.89-1.76); TRIGLYCERIDE 139 mg/dL (0-150); UREA NITROGEN BLOOD 11 mg/dL (9-23)
[2023-11-16 15:53] LABS: THYROID STIMULATING HORMONE 1.13 uIU/mL (0.55-4.78)
[2023-11-18 10:07] LABS: QFT MITOGEN VALUE 2.61 IU/mL (.); QFT TB GOLD PLUS Negative (Negative); QFT TB1 AG VALUE 0.03 IU/mL (.); QFT TB2 AG VALUE 0.04 IU/mL (.)
== END | disposition home or self-care (01) ==
LOC: LAB 10:27
PROVIDERS: ATTEND Internal Medicine Endocrinology, Diabetes & Metabolism
DX: I10 Essential (primary) hypertension (principal); R73.9 Hyperglycemia, unspecified; E55.9 Vitamin D deficiency, unspecified; E78.5 Hyperlipidemia, unspecified; R05.9 Cough, unspecified
CPT/HCPCS: 36415; 70220; 71046; 80053; 80061; 80076; 82306; 83036; 83735; 84439; 84443; 85025; 86480

== ENCOUNTER → 2024-01-25 | Outpatient (CLI) | payer BC | END | disposition home or self-care (01) | LOC: PF 09:22 | PROVIDERS: ATTEND Internal Medicine Critical Care Medicine | DX: R05.9 Cough, unspecified (principal); R06.2 Wheezing; Z20.822 Contact with and (suspected) exposure to COVID-19 | CPT/HCPCS: 94060; 94727; 94729 ==

== ENCOUNTER → 2024-01-25 | Outpatient (CLI) | payer BC ==
[2024-01-25 10:45] LABS: BASOPHILS % 0.3 % (0.0-2.0); HEMATOCRIT. 38.7 % (42.0-52.0); HEMOGLOBIN. 12.9 g/dL (14.0-18.0); LYMPHOCYTES % 26.1 % (20.0-50.0); MEAN CORPUSCULAR HEMOGLOBIN 29.6 pg (28.0-32.0); MEAN CORPUSCULAR HGB CONC 33.3 g/dL (31.0-37.0); MEAN CORPUSCULAR VOLUME 88.8 fL (80.0-94.0); MEAN PLATELET VOLUME 8.2 fl (7.4-10.4); MONOCYTES % 6.3 % (2.0-8.0); NEUTROPHILS % 65.3 % (40.0-76.0); PLATELET 332 x1000/uL (130-400); RED BLOOD CELL COUNT 4.36 mill/uL (4.7-6.1); RED CELL DISTRIBUTION WIDTH 14.3 % (11.6-14.6); WHITE BLOOD COUNT 10.8 x1000/uL (4.5-11.0)
[2024-01-25 11:01] LABS: CHLORIDE 108 mEq/L (98-107); SODIUM 143 mEq/L (136-145)
[2024-01-25 11:02] LABS: CALCIUM 8.9 mg/dL (8.7-10.4); CARBON DIOXIDE 29 mEq/L (21-32)
[2024-01-25 11:07] LABS: CREATININE 0.9 mg/dL (0.6-1.3); GLUCOSE 102 mg/dL (70-105); UREA NITROGEN BLOOD 8 mg/dL (9-23)
[2024-01-25 11:09] LABS: ALANINE AMINOTRANSFERASE 17 IU/L (10-49); ALBUMIN 4.5 g/dL (3.2-4.8); ASPARTATE AMINOTRANSFERASE 21 IU/L (<34); BILIRUBIN TOTAL 0.5 mg/dL (0.1-1.0); PHOSPHORUS 2.4 mg/dL (2.5-4.9)
[2024-01-25 11:10] LABS: PROTEIN TOTAL 8.3 g/dL (6.0-8.3); THYROID STIMULATING HORMONE 1.23 uIU/mL (0.55-4.78)
[2024-01-25 11:11] LABS: T4 FREE 1.19 ng/dL (0.89-1.76)
== END | disposition home or self-care (01) ==
LOC: LAB 09:11
PROVIDERS: ATTEND Internal Medicine Endocrinology, Diabetes & Metabolism
DX: J98.4 Other disorders of lung (principal); I10 Essential (primary) hypertension; E78.5 Hyperlipidemia, unspecified; E55.9 Vitamin D deficiency, unspecified; R73.9 Hyperglycemia, unspecified; R05.9 Cough, unspecified; Z98.890 Other specified postprocedural states
CPT/HCPCS: 36415; 71046; 80053; 83036; 83735; 84100; 84439; 84443; 85025; 87426

== ENCOUNTER → 2024-02-03 | Outpatient (CLI) | payer BC, MEDICARE | END | disposition home or self-care (01) | LOC: RAD 13:33 | PROVIDERS: ATTEND Internal Medicine Critical Care Medicine | DX: R91.8 Other nonspecific abnormal finding of lung field (principal); R05.9 Cough, unspecified; R06.02 Shortness of breath | CPT/HCPCS: 71046 ==

== ENCOUNTER → 2024-02-11 | Day surgery (SDC) | payer BC, MEDICARE ==
[~2024-02-11] VITALS: Ht 167.6 cm; Wt 73.9 kg
[~2024-02-11] MED LIST changes: +ATOR20TA PO; +BALANCED SALT IRRIG SOLN 15ML ONE; +BALANCED SALT IRRIG SOLN COMB1 500ML OP SCH; +CYCLOPENTOLATE HCL 1% OPHTH DROPS 2ML RIGHTEYE SCH; +FLUT1DIS2 INH; +HYALURONATE SODIUM 10 MG/ML 0.55ML SYRINGE IO ONE; +LACTATED RINGERS 1,000 ML IV SCH; +MONT-46 PO; +ONDANSETRON HCL 4MG/2ML INJ IV PRN; +PHENYLEPHRINE HCL 10% OPHTH DROPS 5ML RIGHTEYE SCH; +PROPOFOL 200MG/20ML VIAL IV ONE; +TROPICAMIDE 1% OPHTH DROPS 15ML RIGHTEYE SCH; +TRYPAN BLUE 0.5 ML DISP.SYRIN IO ONE
== END | disposition home or self-care (01) ==
LOC: OR 10:49
PROVIDERS: ATTEND Ophthalmology
DX: H25.89 Other age-related cataract (principal); I25.10 Atherosclerotic heart disease of native coronary artery without angina pectoris; I11.0 Hypertensive heart disease with heart failure; I50.9 Heart failure, unspecified; E78.5 Hyperlipidemia, unspecified; I25.2 Old myocardial infarction; F41.9 Anxiety disorder, unspecified; F32.9 Major depressive disorder, single episode, unspecified; Z79.899 Other long term (current) drug therapy; Z98.890 Other specified postprocedural states; Z79.82 Long term (current) use of aspirin; Z91.040 Latex allergy status; Z88.8 Allergy status to other drugs, medicaments and biological substances; Z87.891 Personal history of nicotine dependence; Z82.49 Family history of ischemic heart disease and other diseases of the circulatory system
CPT/HCPCS: 66984; J3490 ×2; J2704; V2632; Q9957

== ENCOUNTER → 2024-09-22 | Outpatient (CLI) | payer BC, MEDICARE ==
[~2024-09-22] MED LIST changes: -BALANCED SALT IRRIG SOLN 15ML ONE; -BALANCED SALT IRRIG SOLN COMB1 500ML OP SCH; -CYCLOPENTOLATE HCL 1% OPHTH DROPS 2ML RIGHTEYE SCH; -HYALURONATE SODIUM 10 MG/ML 0.55ML SYRINGE IO ONE; -LACTATED RINGERS 1,000 ML IV SCH; -ONDANSETRON HCL 4MG/2ML INJ IV PRN; -PHENYLEPHRINE HCL 10% OPHTH DROPS 5ML RIGHTEYE SCH; -PROPOFOL 200MG/20ML VIAL IV ONE; -ROSU20TA2 PO; -TROPICAMIDE 1% OPHTH DROPS 15ML RIGHTEYE SCH; -TRYPAN BLUE 0.5 ML DISP.SYRIN IO ONE
[2024-09-22 10:43] LABS: BASOPHILS % 0.5 % (0.0-2.0); EOSINOPHILS % 1.4 % (0.0-5.0); HEMATOCRIT. 43.4 % (42.0-52.0); HEMOGLOBIN. 14.6 g/dL (14.0-18.0); LYMPHOCYTES % 37.9 % (20.0-50.0); MEAN CORPUSCULAR HEMOGLOBIN 31.3 pg (28.0-32.0); MEAN CORPUSCULAR HGB CONC 33.7 g/dL (31.0-37.0); MEAN PLATELET VOLUME 8.7 fl (7.4-10.4); MONOCYTES % 9.1 % (2.0-8.0); NEUTROPHILS % 51.1 % (40.0-76.0); PLATELET 199 x1000/uL (130-400); RED BLOOD CELL COUNT 4.66 mill/uL (4.7-6.1); RED CELL DISTRIBUTION WIDTH 13.6 % (11.6-14.6)
[2024-09-22 11:12] LABS: CHLORIDE 102 mEq/L (98-107); SODIUM 138 mEq/L (136-145)
[2024-09-22 11:13] LABS: CARBON DIOXIDE 29 mEq/L (21-32)
[2024-09-22 11:17] LABS: URIC ACID 6.6 mg/dL (3.7-9.2)
[2024-09-22 11:18] LABS: CREATININE 1.1 mg/dL (0.6-1.3); GLUCOSE 112 mg/dL (70-105); TRIGLYCERIDE 104 mg/dL (0-150); UREA NITROGEN BLOOD 12 mg/dL (9-23)
[2024-09-22 11:19] LABS: LDL CHOLESTEROL 56 mg/dL (5-100)
[2024-09-22 11:20] LABS: ALANINE AMINOTRANSFERASE 41 IU/L (10-49); ALBUMIN 4.3 g/dL (3.2-4.8); ASPARTATE AMINOTRANSFERASE 45 IU/L (<34); BILIRUBIN DIRECT 0.4 mg/dL (<=3.0); CHOLESTEROL 119 mg/dL (<200); HDL CHOLESTEROL 41 mg/dL (>55)
[2024-09-22 11:22] LABS: T4 FREE 1.24 ng/dL (0.89-1.76); THYROID STIMULATING HORMONE 1.22 uIU/mL (0.55-4.78)
[2024-09-23 05:11] LABS: PROSTATE SPECIFIC AG TOTAL 0.6 ng/mL (0.0-4.0); VITAMIN D 25-OH 30.3 ng/mL (30.0-100.0)
== END | disposition home or self-care (01) ==
LOC: LAB 10:02
PROVIDERS: ATTEND Internal Medicine Endocrinology, Diabetes & Metabolism
DX: I10 Essential (primary) hypertension (principal); E78.5 Hyperlipidemia, unspecified; E55.9 Vitamin D deficiency, unspecified; N40.0 Benign prostatic hyperplasia without lower urinary tract symptoms; R73.9 Hyperglycemia, unspecified
CPT/HCPCS: 36415; 80053; 80061; 80076; 82306; 83036; 84153; 84439; 84443; 84550; 85025

== ENCOUNTER → 2024-11-10 | Outpatient (CLI) | payer BC | END | disposition home or self-care (01) | LOC: MRI 12:50 | PROVIDERS: ATTEND Neurological Surgery | DX: M47.816 Spondylosis without myelopathy or radiculopathy, lumbar region (principal); M48.061 Spinal stenosis, lumbar region without neurogenic claudication; M43.27 Fusion of spine, lumbosacral region; M54.51 Vertebrogenic low back pain | CPT/HCPCS: 72148 ==

== ENCOUNTER 2024-12-16 12:14 | Inpatient (IN) | payer BC, MEDICARE ==
[~2024-12-16] VITALS: Ht 160 cm; Wt 75.1 kg
[2024-12-16 13:10] LABS: BASOPHILS % 0.2 % (0.0-2.0); EOSINOPHILS % 1.9 % (0.0-5.0); HEMATOCRIT. 46.6 % (42.0-52.0); HEMOGLOBIN. 15.2 g/dL (14.0-18.0); LYMPHOCYTES % 33.5 % (20.0-50.0); MEAN CORPUSCULAR HEMOGLOBIN 30.7 pg (28.0-32.0); MEAN CORPUSCULAR HGB CONC 32.7 g/dL (31.0-37.0); MEAN PLATELET VOLUME 8.5 fl (7.4-10.4); MONOCYTES % 5.2 % (2.0-8.0); NEUTROPHILS % 59.2 % (40.0-76.0); PLATELET 254 x1000/uL (130-400); RED BLOOD CELL COUNT 4.96 mill/uL (4.7-6.1); RED CELL DISTRIBUTION WIDTH 13.6 % (11.6-14.6); WHITE BLOOD COUNT 10.3 x1000/uL (4.5-11.0)
[2024-12-16 13:19] LABS: CARBON DIOXIDE 28 mEq/L (21-32); CHLORIDE 102 mEq/L (98-107); POTASSIUM 4.5 mEq/L (3.5-5.1); SODIUM 140 mEq/L (136-145)
[2024-12-16 13:20] LABS: CALCIUM 9.5 mg/dL (8.7-10.4)
[2024-12-16 13:24] LABS: GLUCOSE 170 mg/dL (70-105); TROPONIN I HIGH SENSITIVITY 19 ng/L (3.0-53)
[2024-12-16 13:25] LABS: UREA NITROGEN BLOOD 9 mg/dL (9-23)
[2024-12-16 13:28] LABS: PARTIAL THROMBOPLASTIN TIME 24.5 sec (23.4-31.0); PROTHROMBIN TIME 10.6 sec (9.6-11.0)
[2024-12-16] MEDS: ONDANSETRON HCL 4MG/2ML INJ IV ONE (15:09)
[2024-12-16] MEDS: MORPHINE SULFATE 4 MG/ML INJ (FOR IV/IM USE) IV ONE (15:17)
[2024-12-16 17:25] LABS: TROPONIN I HIGH SENSITIVITY 23 ng/L (3.0-53)
[2024-12-16 17:27] LABS: ALANINE AMINOTRANSFERASE 25 IU/L (10-49); ALBUMIN 4.6 g/dL (3.2-4.8); ASPARTATE AMINOTRANSFERASE 29 IU/L (<34); BILIRUBIN DIRECT 0.2 mg/dL (<=3.0); BILIRUBIN TOTAL 0.8 mg/dL (0.1-1.0); PROTEIN TOTAL 7.9 g/dL (6.0-8.3)
[2024-12-16] MEDS: ASPIRIN 325MG EC TABLET PO ONE (17:57)
[2024-12-16] MEDS ORDERED: IPRATROPIUM/ALBUTEROL 0.5-3(2.5)MG/3ML NEB NEB PRN (18:00)
[2024-12-16] MEDS ORDERED: ONDANSETRON HCL 4MG/2ML INJ IV PRN (18:00)
[2024-12-16] MEDS ORDERED: NALOXONE HCL 0.4MG/ML VIAL IV PRN (18:30)
[2024-12-16] MEDS: ENOXAPARIN 40MG/0.4ML SYR SUBCUT SCH (19:19)
[2024-12-16] MEDS: ACETAMINOPHEN 325MG TABLET PO PRN (19:20)
[2024-12-16] MEDS: MAGNESIUM/ALUMINUM HYDROXIDE/SIMETHICONE 30ML UDC PO PRN (19:20)
[2024-12-16] MEDS: HYDROCODONE/ACETAMINOPHEN 5/325MG TABLET PO PRN (19:20)
[2024-12-16 19:41] LABS: CLARITY URINE CLEAR (CLEAR); COLOR URINE YELLOW (YELLOW); GLUCOSE URINE NEGATIVE (NEGATIVE); KETONES URINE NEGATIVE (NEGATIVE); LEUKOCYTE ESTERASE URINE NEGATIVE (NEGATIVE); NITRITE URINE NEGATIVE (NEGATIVE); OCCULT BLOOD URINE NEGATIVE (NEGATIVE); PROTEIN URINE NEGATIVE (NEGATIVE); SPECIFIC GRAVITY URINE 1.006 (1.005-1.030); UROBILINOGEN URINE 0.2 E.U./dL (0.2-1.0)
[2024-12-16 19:59] LABS: *AMPHETAMINES SCREEN URINE NEGATIVE (NEGATIVE); *BARBITURATES SCREEN URINE NEGATIVE (NEGATIVE); *BENZODIAZEPINES SCREEN URINE NEGATIVE (NEGATIVE); *COCAINE SCREEN URINE NEGATIVE (NEGATIVE); CANNABINOID URINE SCREEN PRESUMPTIVE POSITIVE (NEGATIVE); ECSTASY MDMA SCREEN URINE NEGATIVE (NEGATIVE); METHADONE URINE SCREEN NEGATIVE (NEGATIVE); OPIATES URINE SCREEN PRESUMPTIVE POSITIVE (NEGATIVE); PHENCYCLIDINE URINE SCREEN NEGATIVE (NEGATIVE)
[2024-12-16] MEDS: ATORVASTATIN CALCIUM 20MG TABLET PO SCH (21:08)
[2024-12-16] MEDS: LORAZEPAM 0.5MG TABLET PO SCH (21:08)
[2024-12-16] MEDS: MIRTAZAPINE 15MG TABLET PO SCH (21:15)
[2024-12-16] MEDS: MONTELUKAST SODIUM 10MG TABLET PO SCH (21:46)
[2024-12-16] MEDS: MORPHINE SULFATE 2 MG/ML INJ (NOT FOR IM USE) IV PRN (22:25)
[2024-12-16 23:30] VITALS: BP 165/6; PULSE 78; RESP 18; TEMP 36.5
[2024-12-16] MEDS: ZOLPIDEM TARTRATE 5MG TABLET PO PRN (23:55)
[2024-12-17] VITALS: BP 138/68; PULSE 59; RESP 21; TEMP 36.8; O2SAT 98
[2024-12-17] MEDS: CLONIDINE 0.1MG TABLET PO PRN (04:48)
[2024-12-17 05:26] LABS: CALCIUM 9.2 mg/dL (8.7-10.4); CHLORIDE 105 mEq/L (98-107); POTASSIUM 4.2 mEq/L (3.5-5.1); SODIUM 143 mEq/L (136-145)
[2024-12-17 05:27] LABS: CARBON DIOXIDE 29 mEq/L (21-32)
[2024-12-17 05:32] LABS: GLUCOSE 97 mg/dL (70-105); UREA NITROGEN BLOOD 8 mg/dL (9-23)
[2024-12-17 06:30] LABS: BASOPHILS % 0.5 % (0.0-2.0); EOSINOPHILS % 4.6 % (0.0-5.0); HEMATOCRIT. 42.5 % (42.0-52.0); HEMOGLOBIN. 14.3 g/dL (14.0-18.0); LYMPHOCYTES % 37.3 % (20.0-50.0); MEAN CORPUSCULAR HGB CONC 33.8 g/dL (31.0-37.0); MEAN CORPUSCULAR VOLUME 91.7 fL (80.0-94.0); MEAN PLATELET VOLUME 8.4 fl (7.4-10.4); MONOCYTES % 7.5 % (2.0-8.0); NEUTROPHILS % 50.1 % (40.0-76.0); PLATELET 215 x1000/uL (130-400); RED BLOOD CELL COUNT 4.63 mill/uL (4.7-6.1); RED CELL DISTRIBUTION WIDTH 13.4 % (11.6-14.6); WHITE BLOOD COUNT 8.1 x1000/uL (4.5-11.0)
[2024-12-17 08:00] VITALS: BP 112/60; PULSE 79; TEMP 36.2
[2024-12-17] MEDS: ASPIRIN 81MG TABLET PO SCH (08:58)
[2024-12-17] MEDS: PANTOPRAZOLE SODIUM 40 MG/VIAL IV SCH (08:58)
[2024-12-17] MEDS: AMLODIPINE 5MG TABLET PO SCH (08:59)
[2024-12-17] MEDS: TAMSULOSIN HCL 0.4MG SR CAPSULE PO SCH (08:59)
[2024-12-17] MEDS: CLOPIDOGREL 75MG TABLET PO SCH (10:27)
[2024-12-17 12:00] VITALS: BP 114/62; PULSE 99; TEMP 36.2
[2024-12-17 16:00] VITALS: BP 125/72; PULSE 100; TEMP 36.2
[2024-12-17 20:00] VITALS: BP 135/77; PULSE 80; RESP 18; TEMP 36.6; O2SAT 98
[2024-12-18] VITALS (7 sets, daily range): BP systolic 116–148; BP diastolic 72–96; PULSE 74–88; RESP 15–19; TEMP 36.3–36.8; O2SAT 98–99
[2024-12-18] MEDS: MORPHINE SULFATE 4 MG/ML INJ (FOR IV/IM USE) IV PRN (04:08)
[2024-12-18 06:41] LABS: CHLORIDE 101 mEq/L (98-107); POTASSIUM 4.5 mEq/L (3.5-5.1); SODIUM 141 mEq/L (136-145)
[2024-12-18 06:42] LABS: CALCIUM 9.8 mg/dL (8.7-10.4); CARBON DIOXIDE 27 mEq/L (21-32)
[2024-12-18 06:47] LABS: GLUCOSE 112 mg/dL (70-105); UREA NITROGEN BLOOD 12 mg/dL (9-23)
[2024-12-18 06:49] LABS: BASOPHILS % 0.2 % (0.0-2.0); EOSINOPHILS % 3.4 % (0.0-5.0); HEMATOCRIT. 47.4 % (42.0-52.0); HEMOGLOBIN. 15.8 g/dL (14.0-18.0); LYMPHOCYTES % 28.5 % (20.0-50.0); MEAN CORPUSCULAR HEMOGLOBIN 30.6 pg (28.0-32.0); MEAN CORPUSCULAR HGB CONC 33.4 g/dL (31.0-37.0); MEAN CORPUSCULAR VOLUME 91.6 fL (80.0-94.0); MEAN PLATELET VOLUME 8.4 fl (7.4-10.4); MONOCYTES % 6.7 % (2.0-8.0); NEUTROPHILS % 61.2 % (40.0-76.0); PLATELET 249 x1000/uL (130-400); RED BLOOD CELL COUNT 5.17 mill/uL (4.7-6.1); RED CELL DISTRIBUTION WIDTH 13.1 % (11.6-14.6); WHITE BLOOD COUNT 9.6 x1000/uL (4.5-11.0)
[2024-12-18] MEDS ORDERED: LIDOCAINE HCL 1% 10 MG/ML 10ML VIAL ONE (09:10)
[2024-12-18] MEDS ORDERED: ATROPINE SULFATE 1MG/10ML SYR IV PRN (15:00)
[2024-12-18] MEDS: SODIUM CHLORIDE 0.45% 500 ML IV SCH (15:00)
[2024-12-18] MEDS ORDERED: ACETAMINOPHEN 325MG TABLET PO PRN (15:00)
[2024-12-19] VITALS: BP 134/83; PULSE 73; RESP 24; TEMP 36.4; O2SAT 96
[2024-12-19 04:00] VITALS: BP 121/78; PULSE 77; RESP 16; TEMP 36.6; O2SAT 95
[2024-12-19 07:33] LABS: CHLORIDE 100 mEq/L (98-107); POTASSIUM 3.7 mEq/L (3.5-5.1); SODIUM 137 mEq/L (136-145)
[2024-12-19 07:34] LABS: CALCIUM 9.1 mg/dL (8.7-10.4); CARBON DIOXIDE 26 mEq/L (21-32)
[2024-12-19 07:39] LABS: BASOPHILS % 0.2 % (0.0-2.0); CREATININE 0.9 mg/dL (0.6-1.3); EOSINOPHILS % 2.6 % (0.0-5.0); GLUCOSE 83 mg/dL (70-105); HEMOGLOBIN. 14.2 g/dL (14.0-18.0); LYMPHOCYTES % 17.8 % (20.0-50.0); MEAN CORPUSCULAR HEMOGLOBIN 30.7 pg (28.0-32.0); MEAN CORPUSCULAR HGB CONC 33.9 g/dL (31.0-37.0); MEAN CORPUSCULAR VOLUME 90.6 fL (80.0-94.0); MEAN PLATELET VOLUME 8.5 fl (7.4-10.4); MONOCYTES % 6.2 % (2.0-8.0); NEUTROPHILS % 73.2 % (40.0-76.0); PLATELET 209 x1000/uL (130-400); RED BLOOD CELL COUNT 4.64 mill/uL (4.7-6.1); RED CELL DISTRIBUTION WIDTH 13.2 % (11.6-14.6); UREA NITROGEN BLOOD 13 mg/dL (9-23)
[2024-12-19 08:00] VITALS: BP 143/91; PULSE 67; RESP 16; TEMP 36.9; O2SAT 96
[2024-12-19 12:00] VITALS: BP 102/61; PULSE 79; RESP 16; TEMP 36.6; O2SAT 98
[2024-12-19 16:00] VITALS: BP 120/74; PULSE 75; RESP 12; TEMP 36.7; O2SAT 97
[2024-12-19 20:00] VITALS: BP 150/73; PULSE 78; RESP 24; TEMP 36.7; O2SAT 97
[2024-12-20] VITALS: BP 130/73; PULSE 80; RESP 20; TEMP 36.7; O2SAT 97
[2024-12-20 04:00] VITALS: BP 122/1; PULSE 77; RESP 18; TEMP 36.6; O2SAT 96
[2024-12-20 08:00] VITALS: BP 139/96; PULSE 82; RESP 20; TEMP 36.7; O2SAT 98
[2024-12-20] MEDS ORDERED: NICARDIPINE HCL IV PRN (08:15)
[2024-12-20] MEDS ORDERED: NITROGLYCERIN 5 MG/ML IV PRN (08:15)
[2024-12-20] MEDS ORDERED: ONDANSETRON HCL 4MG/2ML INJ IV PRN (10:30)
[2024-12-20] MEDS ORDERED: HYDROMORPHONE HCL/PF 1MG/ML INJ IV PRN (10:30)
[2024-12-20] MEDS ORDERED: MEPERIDINE HCL/PF 25MG/ML CPJ IV PRN (10:30)
[2024-12-20] MEDS ORDERED: LABETALOL 5MG/ML 4ML INJ IV PRN (10:30)
[2024-12-20 12:00] VITALS: BP 137/81; PULSE 64; RESP 14; TEMP 36.8; O2SAT 99
[2024-12-20] MEDS ORDERED: ATROPINE SULFATE 1MG/10ML SYR IV PRN (12:00)
[2024-12-20] MEDS ORDERED: ACETAMINOPHEN 325MG TABLET PO PRN (12:00)
[2024-12-20] MEDS: SODIUM CHLORIDE 0.45% 250 ML IV ONE (12:00)
[2024-12-20 16:00] VITALS: BP 136/76; PULSE 66; RESP 12; TEMP 36.7; O2SAT 100
[2024-12-20 20:00] VITALS: BP 107/66; PULSE 64; RESP 20; TEMP 36.2; O2SAT 98
[2024-12-21 04:00] VITALS: BP 118/73; PULSE 84; RESP 19; TEMP 36.2; O2SAT 98
[2024-12-21 07:26] LABS: BASOPHILS % 0.2 % (0.0-2.0); EOSINOPHILS % 3.5 % (0.0-5.0); HEMATOCRIT. 34.4 % (42.0-52.0); HEMOGLOBIN. 11.8 g/dL (14.0-18.0); MEAN CORPUSCULAR HEMOGLOBIN 31.2 pg (28.0-32.0); MEAN CORPUSCULAR HGB CONC 34.3 g/dL (31.0-37.0); MEAN CORPUSCULAR VOLUME 90.8 fL (80.0-94.0); MEAN PLATELET VOLUME 8.7 fl (7.4-10.4); MONOCYTES % 7.3 % (2.0-8.0); PLATELET 164 x1000/uL (130-400); RED BLOOD CELL COUNT 3.79 mill/uL (4.7-6.1); RED CELL DISTRIBUTION WIDTH 13.1 % (11.6-14.6); WHITE BLOOD COUNT 10.4 x1000/uL (4.5-11.0)
[2024-12-21 07:45] LABS: CARBON DIOXIDE 25 mEq/L (21-32); CHLORIDE 99 mEq/L (98-107); POTASSIUM 3.4 mEq/L (3.5-5.1); SODIUM 137 mEq/L (136-145)
[2024-12-21 07:49] LABS: CREATININE 0.8 mg/dL (0.6-1.3)
[2024-12-21 07:51] LABS: GLUCOSE 88 mg/dL (70-105); UREA NITROGEN BLOOD 10 mg/dL (9-23)
[2024-12-21 08:00] VITALS: BP 129/83; PULSE 84; RESP 22; TEMP 36.7; O2SAT 96
[2024-12-21 12:00] VITALS: BP 129/71; PULSE 82; RESP 23; TEMP 36.7; O2SAT 98
[2024-12-21] MEDS ORDERED: ASPI-1160 PO (12:34)
[2024-12-21] MEDS ORDERED: CLOP-31 PO (12:34)
[2024-12-21] MEDS ORDERED: LIP40 MT (12:34)
[2024-12-21 14:23] VITALS: BP 129/71; PULSE 82; TEMP 98; O2SAT 99
== END 2024-12-21 17:04 | disposition home or self-care (01) | DRG 324 ==
LOC: ER 12:14 → 6WST 17:23 → 3WST 12-18 14:10
PROVIDERS: ADMIT Internal Medicine; ATTEND Internal Medicine
PROC: 02703ZZ Dilation of Coronary Artery, One Artery, Percutaneous Approach (ICD-10-PCS; 2024-12-18)
PROC: 4A023N7 Measurement of Cardiac Sampling and Pressure, Left Heart, Percutaneous Approach (ICD-10-PCS; 2024-12-18)
PROC: B211YZZ Fluoroscopy of Multiple Coronary Arteries using Other Contrast (ICD-10-PCS; 2024-12-18)
PROC: B213YZZ Fluoroscopy of Multiple Coronary Artery Bypass Grafts using Other Contrast (ICD-10-PCS; 2024-12-18)
PROC: B240ZZ3 Ultrasonography of Single Coronary Artery, Intravascular (ICD-10-PCS; 2024-12-18)
PROC: B41FYZZ Fluoroscopy of Right Lower Extremity Arteries using Other Contrast (ICD-10-PCS; 2024-12-18)
PROC: 02HV33Z Insertion of Infusion Device into Superior Vena Cava, Percutaneous Approach (ICD-10-PCS; 2024-12-18)
PROC: B548ZZA Ultrasonography of Superior Vena Cava, Guidance (ICD-10-PCS; 2024-12-18)
PROC: 027136Z Dilation of Coronary Artery, Two Arteries with Three Drug-eluting Intraluminal Devices, Percutaneous Approach (ICD-10-PCS; principal; 2024-12-20)
PROC: 02F03ZZ Fragmentation in Coronary Artery, One Artery, Percutaneous Approach (ICD-10-PCS; 2024-12-20)
PROC: 4A023N7 Measurement of Cardiac Sampling and Pressure, Left Heart, Percutaneous Approach (ICD-10-PCS; 2024-12-20)
PROC: B2111ZZ Fluoroscopy of Multiple Coronary Arteries using Low Osmolar Contrast (ICD-10-PCS; 2024-12-20)
PROC: 5A1223Z Performance of Cardiac Pacing, Continuous (ICD-10-PCS; 2024-12-20)
DX: I25.110 Atherosclerotic heart disease of native coronary artery with unstable angina pectoris (principal); I50.32 Chronic diastolic (congestive) heart failure; I11.0 Hypertensive heart disease with heart failure; H26.9 Unspecified cataract; M48.00 Spinal stenosis, site unspecified; R55 Syncope and collapse; R00.1 Bradycardia, unspecified; E78.00 Pure hypercholesterolemia, unspecified; F32.A Depression, unspecified; F41.9 Anxiety disorder, unspecified; Z95.1 Presence of aortocoronary bypass graft; Z90.49 Acquired absence of other specified parts of digestive tract; Z91.041 Radiographic dye allergy status
CPT/HCPCS: 36415; 36573; 71045; 71275; 74174; 80048; 80076; 80305; 81003; 84484; 85025; 85347; 92928; 92978; 93005; 93306; 93454; 93459; 93970; 99285; C1725; C1753; C1769; C1874; C1887; C1893; J1650; J2003; J2270; J2405; J2470; J3490; L1830; C1761; C1784

== ENCOUNTER → 2025-05-18 | Outpatient (CLI) | payer BC, MEDICARE ==
[~2025-05-18] MED LIST changes: -ATOR20TA PO; +LIP40 MT; -TAMS-11 MT; +TAMS-54 MT
[2025-05-18 09:44] LABS: BASOPHILS % 0.3 % (0.0-2.0); EOSINOPHILS % 4.8 % (0.0-5.0); HEMATOCRIT. 45.3 % (42.0-52.0); HEMOGLOBIN. 15.2 g/dL (14.0-18.0); LYMPHOCYTES % 35.6 % (20.0-50.0); MEAN PLATELET VOLUME 8.8 fl (7.4-10.4); MONOCYTES % 5.6 % (2.0-8.0); NEUTROPHILS % 53.7 % (40.0-76.0); PLATELET 191 x1000/uL (130-400); RED BLOOD CELL COUNT 5.01 mill/uL (4.7-6.1); RED CELL DISTRIBUTION WIDTH 13.2 % (11.6-14.6)
[2025-05-18 10:05] LABS: CREATININE 1.1 mg/dL (0.6-1.3); TRIGLYCERIDE 106 mg/dL (0-150); UREA NITROGEN BLOOD 13 mg/dL (9-23)
[2025-05-18 10:06] LABS: LDL CHOLESTEROL 58 mg/dL (5-100)
[2025-05-18 10:07] LABS: ASPARTATE AMINOTRANSFERASE 34 IU/L (<34); BILIRUBIN DIRECT 0.3 mg/dL (<=3.0); BILIRUBIN TOTAL 1.0 mg/dL (0.1-1.0); PROTEIN TOTAL 7.6 g/dL (6.0-8.3)
[2025-05-18 10:09] LABS: T4 FREE 1.37 ng/dL (0.89-1.76)
[2025-05-19 04:07] LABS: PROSTATE SPECIFIC AG TOTAL 0.7 ng/mL (0.0-4.0); VITAMIN D 25-OH 36.9 ng/mL (30.0-100.0)
== END | disposition home or self-care (01) ==
LOC: LAB 09:02
PROVIDERS: ATTEND Internal Medicine Endocrinology, Diabetes & Metabolism
DX: N40.1 Benign prostatic hyperplasia with lower urinary tract symptoms (principal); R73.9 Hyperglycemia, unspecified
CPT/HCPCS: 36415; 80053; 80061; 80076; 82306; 83036; 83540; 83550; 84153; 84439; 84443; 84550; 85025

== ENCOUNTER → 2025-09-25 | Outpatient (CLI) | payer BC | END | disposition home or self-care (01) | LOC: MRI 09:06 | PROVIDERS: ATTEND Neurological Surgery | DX: M47.812 Spondylosis without myelopathy or radiculopathy, cervical region (principal); M48.02 Spinal stenosis, cervical region; M50.222 Other cervical disc displacement at C5-C6 level; M43.22 Fusion of spine, cervical region | CPT/HCPCS: 72141 ==

== ENCOUNTER → 2025-09-25 | Outpatient (CLI) | payer BC ==
[2025-09-25 10:37] LABS: BASOPHILS % 0.5 % (0.0-2.0); EOSINOPHILS % 2.2 % (0.0-5.0); HEMATOCRIT. 41.7 % (42.0-52.0); HEMOGLOBIN. 14.3 g/dL (14.0-18.0); LYMPHOCYTES % 27.6 % (20.0-50.0); MEAN PLATELET VOLUME 8.3 fl (7.4-10.4); MONOCYTES % 6.1 % (2.0-8.0); NEUTROPHILS % 63.6 % (40.0-76.0); PLATELET 187 x1000/uL (130-400); RED BLOOD CELL COUNT 4.60 mill/uL (4.7-6.1); RED CELL DISTRIBUTION WIDTH 13.1 % (11.6-14.6)
[2025-09-25 11:09] LABS: TRIGLYCERIDE 80 mg/dL (0-150)
[2025-09-25 11:10] LABS: UREA NITROGEN BLOOD 7 mg/dL (9-23)
[2025-09-25 11:12] LABS: CREATININE 1.0 mg/dL (0.6-1.3); T4 FREE 1.25 ng/dL (0.89-1.76)
[2025-09-25 11:13] LABS: LDL CHOLESTEROL 61 mg/dL (5-100); PROTEIN TOTAL 7.3 g/dL (6.0-8.3)
[2025-09-25 11:14] LABS: ASPARTATE AMINOTRANSFERASE 31 IU/L (<34); BILIRUBIN DIRECT 0.3 mg/dL (<=3.0)
[2025-09-25 11:15] LABS: BILIRUBIN TOTAL 0.9 mg/dL (0.1-1.0)
[2025-09-26 09:07] LABS: VITAMIN D 25-OH 30.8 ng/mL (30.0-100.0)
[2025-09-26 10:10] LABS: PROSTATE SPECIFIC AG TOTAL 0.5 ng/mL (0.0-4.0)
[2025-09-29 04:09] LABS: ANA IFA Negative (.)
== END | disposition home or self-care (01) ==
LOC: LAB 09:22
PROVIDERS: ATTEND Internal Medicine Endocrinology, Diabetes & Metabolism
DX: E78.5 Hyperlipidemia, unspecified (principal); R73.9 Hyperglycemia, unspecified; I10 Essential (primary) hypertension; E55.9 Vitamin D deficiency, unspecified
CPT/HCPCS: 36415; 80053; 80061; 80076; 82306; 83036; 84153; 84439; 84443; 84550; 85025; 86256